=== PATIENT | male | born 1945 | race Caucasian/White ===

== ENCOUNTER 2016-08-14 20:40 | Emergency (ER) | payer OTHER ==
[~2016-08-14] VITALS: Ht 170.2 cm; Wt 78.3 kg
[2016-08-14 20:47] VITALS: TEMP 36.5; Ht 170.2 cm; Wt 78.3 kg
[2016-08-14] MEDS ORDERED: DOXYCYCLINE HYCLATE 100 MG CAP PO STA (21:09)
[2016-08-14] MEDS ORDERED: MULT-506 PO (21:16)
[2016-08-14] MEDS ORDERED: METF-382 PO (21:16)
[2016-08-14] MEDS ORDERED: GLIP5TAB3 PO (21:16)
[2016-08-14] MEDS ORDERED: ASPI81TA28 PO (21:16)
[2016-08-14] MEDS ORDERED: CINN500T PO (21:16)
[2016-08-14] MEDS ORDERED: METO25TA56 PO (21:16)
[2016-08-14] MEDS ORDERED: ATOR-24 PO (21:16)
[2016-08-14] MEDS ORDERED: LISI-461 PO (21:16)
[2016-08-14 21:25] VITALS: BP 132/85; PULSE 82; O2SAT 98
--- NOTE | 2016-08-14 22:27 | EMERGENCY ROOM VISIT NOTE ---
ED Visit Note First contact with patient: 20:50 CHIEF COMPLAINT: Tick bite HISTORY OF PRESENT ILLNESS: This 71-year-old male patient presents to the emergency department after they noticed a tick embedded on the right arm. The patient did remove it, but has developed a small area of warmth in this area. It had been on for less than 24 hours. The patient's tetanus shot is reportedly up-to-date. The patient denies any rashes, fevers, chills, or lightheadedness. The patient denies joint tenderness. REVIEW OF SYSTEMS: A 6 system review of systems was completed with positives and pertinent negatives listed in the HPI. ALLERGIES: No known allergies MEDICATIONS: See EMR PMH: See EMR SOCIAL HISTORY: See EMR PHYSICAL EXAM: Vital Signs: Reviewed Nurse's notes, vital signs stable. GENERAL : White male, in no acute distress, well-developed, well-nourished. SKIN: There is an area of erythema over the anterior cubital fossa of the right arm. There is no significant cellulitis or evidence of rash NEUROLOGICAL: Alert and oriented to person place and time, cooperative. Sensory and motor functions grossly intact. ED COURSE: Physical exam and history were performed. Nursing notes and EMR were reviewed. The patient evidently had a tick bite earlier today. He was able to remove it in full, but does have some residual irritation to the area. I do not suspect a gross cellulitis or obvious Lyme disease. The patient will be given a post exposure dose of 200 mg doxycycline. He is asked to follow with his primary care physician with any ongoing or persisting symptoms. He was pleased with plan of care and discharged home in stable condition. Current/Historical Medications Scheduled Aspirin (Aspirin Ec), 81 MG PO DAILY Atorvastatin (Lipitor), 40 MG PO HS Glipizide (Glucotrol), 5-10 MG PO UD Metformin Ext Rel (Glucophage Ext Rel), 1,000 MG PO BID Metoprolol Tartrate (Lopressor) (Lopressor), 25 MG PO BID Multivitamin (Multivitamin), 1 TAB PO DAILY Scheduled PRN Cinnamon (Cinnamon), 500 MG PO DAILY PRN for supplement Miscellaneous Medications Lisinopril (Zestril), 10 MG PO Allergies Coded Allergies: NO KNOWN DRUG ALLERGIES (Verified Allergy, Unknown, none, 08/14/16) Uncoded Allergies: NKDA (Allergy, Unknown, 07/27/05) Vital Signs Date Time Temp Pulse Resp B/P Pulse Ox O2 Delivery O2 Flow Rate FiO2 08/14/16 21:25 82 18 132/85 98 08/14/16 20:47 36.5 79 18 176/76 95 Room Air Medications Administered Medications (Trade) Dose Ordered Sig/Berry Route Start Time Stop Time Status Last Admin Dose Admin Doxycycline Hyclate (Vibramycin Cap) 200 mg NOW STAT PO 08/14/16 21:09 08/14/16 21:10 DC 08/14/16 21:21 200 MG Departure Information Impression Primary Impression: Tick bite Dispostion Home / Self-Care Condition FAIR Referrals Malik King D.O.Int.Med. Malik King D.O. Pulmonary (PCP) Forms HOME CARE DOCUMENTATION FORM, IMPORTANT VISIT INFORMATION Patient Instructions My [facility] Additional Instructions You were seen and evaluated today on an emergency basis only. This is not a substitute for, or an effort to provide, complete comprehensive medical care. It is not possible to recognize and treat all injuries or illnesses in a single emergency department visit. For this reason it is recommended that you followup with your primary care physician next week for any ongoing or persistent symptoms. You are welcome to return to the emergency department anytime with new, worsening, or concerning symptoms.
== END 2016-08-14 21:23 | disposition home or self-care (01) ==
LOC: C.EDB 20:41 → C.EDD 21:23
DX: S41.151A Open bite of right upper arm, initial encounter (principal); W57.XXXA Bitten or stung by nonvenomous insect and other nonvenomous arthropods, initial encounter; Z79.82 Long term (current) use of aspirin

== ENCOUNTER → 2016-11-11 | Outpatient (CLI) | payer OTHER ==
[~2016-11-11] MED LIST: ASPI81TA28 PO; ATOR-24 PO; CINN500T PO; GLIP5TAB3 PO; LISI-461 PO; METF-382 PO; METO25TA56 PO; MULT-506 PO
[2016-11-11 12:50] LABS: ESTIMATED AVERAGE GLUCOSE 137 mg/dl; HA1C FLAG Normal (Normal)
== END | disposition home or self-care (01) ==
LOC: C.LABBFT 08:40
PROVIDERS: ATTEND Nurse Practitioner Family
DX: Z00.00 Encounter for general adult medical examination without abnormal findings (principal); E11.9 Type 2 diabetes mellitus without complications

== ENCOUNTER → 2016-11-24 | Outpatient (CLI) | payer OTHER ==
[2016-11-24 12:58] LABS: ALT/SGPT 24 U/L (12-78); BLOOD UREA NITROGEN 14 mg/dl (7-18); BUN/CREATININE RATIO 18.3 (10-20); CARBON DIOXIDE 30 mmol/L (21-32); CHLORIDE 105 mmol/L (98-107); CHOLESTEROL 130 mg/dl (0-200); CREATININE 0.78 mg/dl (0.60-1.40); GLUCOSE 115 mg/dl (70-99); POTASSIUM 4.3 mmol/L (3.5-5.1); SODIUM 142 mmol/L (136-145); TRIGLYCERIDES 114 mg/dl (0-150); VERY LOW DENSITY LIPOPROT CALC 23 mg/dl
[2016-11-24 13:02] LABS: CALCIUM 9.4 mg/dl (8.5-10.1)
[2016-11-24 13:08] LABS: ALB/GLOB RATIO 1.1 (0.9-2); ALKALINE PHOSPHATASE 58 U/L (45-117); AST/SGOT 13 U/L (15-37); CHOLESTEROL/HDL RATIO 2.9; HDL CHOLESTEROL 45 mg/dl; LDL CHOLESTEROL CALCULATED 62 mg/dl
[2016-11-24 13:26] LABS: RATIO 7.1 mcg/mg (0-30.0)
== END | disposition home or self-care (01) ==
LOC: C.LAB1850 10:02
PROVIDERS: ATTEND Nurse Practitioner Family
DX: E11.9 Type 2 diabetes mellitus without complications (principal); M17.11 Unilateral primary osteoarthritis, right knee

== ENCOUNTER → 2016-11-24 | Outpatient (CLI) | payer OTHER ==
--- NOTE | 2016-11-24 11:50 | DIAGNOSTIC IMAGING REPORT ---
RIGHT KNEE 1 OR 2 VIEWS ROUTINE CLINICAL HISTORY: Right knee pain. COMPARISON: None. DISCUSSION: There are advanced osteoarthritic changes present. There are dorsal patellar spurs. There is marked medial joint compartment narrowing. There are medial joint compartment spurs. There is chondrocalcinosis. There are anterior femoral spurs. IMPRESSION: 1. No acute fractures 2. Advanced osteoarthritis Electronically signed by: Thaddeus Blackman M.D. 11/24/2016 11:49 AM Dictated Date/Time: 11/24/2016 11:48 AM
== END | disposition home or self-care (01) ==
LOC: C.RADBC 11:30
PROVIDERS: ATTEND Family Medicine
DX: M17.11 Unilateral primary osteoarthritis, right knee (principal)

== ENCOUNTER 2023-11-02 20:03 | Inpatient (IN) ==
[2023-11-02 20:50] LABS: Basophils # (auto) 0.05 K/uL (0.00-0.20); Basophils % (auto) 0.8 %; Eosinophils # (auto) 0.09 K/uL (0.00-0.50); Eosinophils % (auto) 1.4 %; Hematocrit (blood only) 41.5 % (42.0-52.0); Hemoglobin 14.2 g/dl (14.0-18.0); Immature Granulocytes # (auto) 0.03 K/uL (0.01-0.20); Immature Granulocytes % (auto) 0.5 %; Lymphocytes # (auto) 1.42 K/uL (1.20-3.40); Lymphocytes % (auto) 21.8 %; Mean Corpuscular Hemoglobin 31.1 pg (25.0-34.0); Mean Corpuscular Hgb Conc 34.2 g/dL (32.0-36.0); Mean Corpuscular Volume 90.8 fL (80.0-100.0); Mean Platelet Volume 10.8 fL (9.4-12.4); Monocytes # (auto) 0.59 K/uL (0.11-0.59); Monocytes % (auto) 9.1 %; Neutrophils # (auto) 4.33 K/uL (1.40-6.50); Neutrophils % (auto) 66.4 %; Platelet Count 154 K/uL (130-400); RDW Coefficient of Variation 13.2 % (11.5-14.5); RDW Standard Deviation 43.8 fL (36.4-46.3); Red Blood Count 4.57 M/uL (4.70-6.10); White Blood Count 6.51 K/ul (4.8-10.8)
[2023-11-02] MEDS: SODIUM CHLORIDE 0.9% 500 ML IV ONE (20:55)
[2023-11-02 21:09] LABS: Albumin Globulin Ratio 1.2 (0.9-2); Albumin Level 3.6 gm/dl (3.4-5.0); BUN Creatinine Ratio 25.2 (10-20); Bilirubin,Total 1.3 mg/dl (0.2-1.0); Est GFR (African American) 63.9 ml/min; Est GFR (Non-African American) 55.1 ml/min; Globulin 2.9 gm/dl (2.5-4.0); Magnesium 1.6 mg/dl (1.7-2.4); Potassium 4.1 mmol/L (3.5-5.1); Total Protein 6.5 gm/dl (6.0-8.3)
[2023-11-02 21:13] LABS: iSTAT Creatinine 1.3 mg/dl (0.6-1.3); iSTAT Hemoglobin 14.6 g/dl (14.0-18.0); iSTAT Ionized Calcium 1.18 mmol/l (1.12-1.32); iSTAT Potassium 4.1 mmol/L (3.3-5.0)
[2023-11-02 21:15] LABS: Troponin I High Sensitivity 30.9 pg/ml (0-20)
[2023-11-02] MEDS: OPTIRAY 320 125ml IV ONE (21:16)
[2023-11-02 21:22] LABS: Partial Thromboplastin Ratio 0.9; Partial Thromboplastin Time 23 Seconds (21-31); Prothrombin Time 11.2 Seconds (9.0-12.0)
--- NOTE | 2023-11-02 21:32 | CT Scan Report ---
Exam(s): CT HEAD Without Contrast EXAM: CT Head Without Intravenous Contrast CLINICAL HISTORY: Reason for exam: neuro deficit, acute stroke suspected. TECHNIQUE: Axial computed tomography images of the head/brain without intravenous contrast. CTDI is 38.31 mGy and DLP is 1115.88 mGy-cm. Automated exposure control was utilized for the study. A dose lowering technique was utilized adhering to the principles of ALARA. COMPARISON: None FINDINGS: Brain: No acute infarct or hemorrhage identified. No extra-axial fluid collection. No mass effect or midline shift. Scattered areas of hypoattenuation in the supratentorial white matter likely represent chronic small vessel ischemic changes. Ventricles and sulci: Prominence of the ventricles and sulci is likely secondary to cerebral volume loss. Bones: Normal. No bony lesion or acute fracture. Subcutaneous tissues: Normal. Sinuses: Normal. No air-fluid levels or mucosal thickening. Mastoid air cells: Normal. Orbits: Bilateral lens implants. Other: Atherosclerotic calcifications in the intracranial vasculature. IMPRESSION: 1. No acute intracranial abnormality. 2. Mild chronic small vessel ischemic changes and cerebral volume loss. Communications: Call Doctor Stroke Electronically signed by: Rosalba Haynes M.D. 11/02/23 21:31 PM
[2023-11-02 21:34] LABS: Appearance Urine Clear (Clear); Bilirubin Urine 1+ (Negative); Blood Urine Negative (Negative); Color Urine Dark Yellow; Glucose Urine UA 3+ (Negative); Ketones Urine Trace (Negative); Leukocyte Esterase Urine Negative (Negative); Nitrite Urine Negative (Negative); Protein Urine Negative (Negative); Specific Gravity Urine 1.037 (1.000-1.030); Urobilinogen Urine Negative (Negative); pH Urine 5.5 (4.5-7.5)
--- NOTE | 2023-11-02 21:39 | CT Scan Report ---
Exam(s): CTA NECK With Contrast IV Amt: 119ml EXAM: CT Angiography Neck With Intravenous Contrast CLINICAL HISTORY: Reason for exam: neuro deficit, acute stroke suspected. TECHNIQUE: Routine carotid CT angiography protocol was performed with intravenous contrast. NASCET criteria using the distal ICAs for comparison were used for evaluation of stenoses. CTDI is 38.31 mGy and DLP is 1115.88 mGy-cm. Automated exposure control was utilized for the study. A dose lowering technique was utilized adhering to the principles of ALARA. MIP reconstructed images were created and reviewed. CONTRAST: Patient received 119ml of IV contrast COMPARISON: None FINDINGS: VASCULATURE: Right common carotid artery: Atherosclerotic changes of the right common carotid artery, causing approximately 30-50% stenosis. No dissection. Right internal carotid artery: Atherosclerotic changes in the right carotid bulb and proximal right ICA, causing approximately 80% stenosis and the right carotid bulb and 30-50% stenosis of the proximal right ICA. No dissection. Right external carotid artery: Approximately 50-70% stenosis of the proximal right ECA. Right vertebral artery: Unremarkable. No occlusion or significant stenosis. No dissection. Left common carotid artery: Atherosclerotic changes of the left common carotid artery, causing approximately 30-50% stenosis. No dissection. Left internal carotid artery: Atherosclerotic changes in the left carotid bulb and proximal left ICA, causing approximately 50% stenosis of the left carotid bulb. No dissection. Left external carotid artery: Approximately 80-90% stenosis in the proximal left ECA. Left vertebral artery: Dominant left vertebral artery. No occlusion or significant stenosis. No dissection. Aorta: Atherosclerotic changes of the aorta and origins of the great vessels. NECK: Bones/joints: Degenerative changes of the spine. No acute fracture. Soft tissues: Unremarkable. Lung apices: Clear. CAROTID STENOSIS REFERENCE USING NASCET CRITERIA: % ICA stenosis = (1 - narrowest ICA diameter/diameter of distal cervical ICA) x 100. Mild - <50% stenosis. Moderate - 50-69% stenosis. Severe - 70-94% stenosis. Near occlusion - 95-99% stenosis. Occluded - 100% stenosis. IMPRESSION: 1. Atherosclerotic changes of the right common carotid artery, causing approximately 30-50% stenosis. 2. Atherosclerotic changes in the right carotid bulb and proximal right ICA, causing approximately 80% stenosis and the right carotid bulb and 30- 50% stenosis of the proximal right ICA. 3. Atherosclerotic changes in the left carotid bulb and proximal left ICA, causing approximately 50% stenosis of the left carotid bulb. 4. Approximately 50-70% stenosis of the proximal right ECA. 5. Approximately 80-90% stenosis in the proximal left ECA. Communications: Call Doctor Stroke Electronically signed by: Rosalba Haynes M.D. 11/02/23 21:38 PM
--- NOTE | 2023-11-02 21:41 | CT Scan Report ---
Exam(s): CTA HEAD With Contrast IV Amt: 119ml EXAM: CT Angiography Head With Intravenous Contrast CLINICAL HISTORY: Reason for exam: neuro deficit, acute stroke suspected. TECHNIQUE: Axial computed tomographic angiography images of the head with intravenous contrast. CTDI is 38.31 mGy and DLP is 1115.88 mGy-cm. Automated exposure control was utilized for the study. A dose lowering technique was utilized adhering to the principles of ALARA. MIP reconstructed images were created and reviewed. CONTRAST: Patient received 119ml of IV contrast COMPARISON: None FINDINGS: Right internal carotid artery: Possible 3 mm aneurysm off of the junction of the supraclinoid right ICA and MCA. Atherosclerotic calcifications of the distal right ICA. No significant stenosis. Right anterior cerebral artery: Unremarkable. No occlusion or significant stenosis. No aneurysm. Right middle cerebral artery: See above. Right posterior cerebral artery: Unremarkable. No occlusion or significant stenosis. No aneurysm. Right vertebral artery: Mild atherosclerotic calcification of the V4 segment of the right vertebral artery. Left internal carotid artery: Atherosclerotic calcifications of the distal left ICA. No significant stenosis. No aneurysm. Left anterior cerebral artery: Unremarkable. No occlusion or significant stenosis. No aneurysm. Left middle cerebral artery: Unremarkable. No occlusion or significant stenosis. No aneurysm. Left posterior cerebral artery: Unremarkable. No occlusion or significant stenosis. No aneurysm. Left vertebral artery: Unremarkable as visualized. Basilar artery: Unremarkable. No occlusion or significant stenosis. No aneurysm. 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 No significant stenosis or occlusion in the central or large intracranial arteries. Communications: Call Doctor Stroke Electronically signed by: Rosalba Haynes M.D. 11/02/23 21:41 PM
--- NOTE | 2023-11-02 21:48 | Emergency Department Note ---
History of Present Illness General Chief complaint: TIA Symptoms Stated complaint: HEART SURG, CONFUSION, NAUSEA Time Seen by Provider: 11/02/23 20:28 History of Present Illness Provider complaint: Difficulty speaking 78-year-old male presents emergency department with family for difficulty speaking. According to the son and other family members at bedside at 1930 the patient had an episode of expressive aphasia and slurred speech. They stated that his symptoms resolved after 5 minutes. Patient denies any falls or traumas. No headaches. Reports having heartburn but no chest pain. No difficulty breathing. Patient recently had a TAVR procedure done at [facility] on October 26, 2023. Patient is not sure if he is on any blood thinners. Home Medications Medication Instructions Recorded Confirmed Type multivitamin 1 tab PO QAM 08/27/19 09/08/23 History OneTouch Delica Lancets 33 gauge #300 ea 03/19/20 09/08/23 Rx (lancets) aspirin 81 mg tablet,delayed 81 mg PO HS 05/30/20 09/08/23 History release ascorbic acid (vitamin C) 500 mg 1,000 mg PO DAILY 07/03/21 09/08/23 History tablet cinnamon bark 500 mg capsule 2,000 mg PO BID 07/03/21 09/08/23 History (Cinnamon) OneTouch Verio test strips (blood #300 ea 09/17/21 09/08/23 Rx sugar diagnostic) Saccharomyces boulardii 250 mg 250 mg PO DAILY 03/16/22 09/08/23 History capsule (Daily Probiotic (S. boulardii)) diclofenac sodium 75 mg 75 mg PO BID PRN Pain #30 tabs 04/16/22 09/08/23 Rx tablet,delayed release OneTouch Verio Flex Start #1 ea 09/06/22 09/08/23 Rx (blood-glucose meter) metformin 500 mg tablet,extended 1,000 mg (2 x 500 mg) PO BID #360 10/06/22 09/08/23 Rx release 24 hr tabs atorvastatin 80 mg tablet 80 mg PO DAILY #90 tabs 01/04/23 09/08/23 Rx metoprolol tartrate 25 mg tablet 25 mg PO BID #180 tabs 01/04/23 09/08/23 Rx clopidogrel 75 mg tablet (Plavix) 75 mg PO DAILY #90 tabs 03/21/23 09/08/23 Rx losartan 100 mg tablet 100 mg PO DAILY #90 tabs 03/21/23 09/08/23 Rx tamsulosin 0.4 mg capsule 0.4 mg PO BID #180 caps 04/05/23 09/08/23 Rx empagliflozin 25 mg tablet 25 mg PO DAILY #90 tabs 06/21/23 09/08/23 Rx (Jardiance) isosorbide mononitrate 60 mg 60 mg PO QAM #90 tabs 09/08/23 09/08/23 Rx tablet,extended release 24 hr Allergies Allergy/AdvReac Type Severity Reaction Status Date / Time No Known Drug Allergies Allergy Unknown none Verified 09/08/23 10:50 Past Med/Surg History Problem List (Updated 11/02/23 @ 22:02 by Marcos Conner MD) Brain TIA (Acute) ROBIN (dyspnea on exertion) Stable angina pectoris Lower urinary tract symptoms Exertional chest pain LVH (left ventricular hypertrophy) (Chronic) Aortic stenosis (Chronic) Hearing deficit (Chronic) CAD (coronary artery disease) (Chronic) s/p ANTIONE x 2 10yrs ago, and ANTIONE x 2 12/2018 BPH (benign prostatic hyperplasia) (Chronic) Dyslipidemia (Chronic) Hypertension (Chronic) Type 2 diabetes mellitus (Chronic) Surgical History History of heart artery stent total 3 (last placed 2018) @ [place] History of bilateral cataract extraction History of carpal tunnel release BILAT History of colonoscopy History of tooth extraction History of arthroscopy rt knee Family History Sister Diabetes Brother Myocardial infarction Sister Heart disease Other No family history of adverse response to anesthesia Denies family history of Ovarian cancer Prostate cancer Breast cancer Lung cancer Colorectal cancer Social History Smoking Status: Never smoker Second Hand Exposure: Yes (as a child); Do You Dip or Chew Tobacco: No; Hx Alcohol Use: No Hx Substance Use: No Preferred Language: Bangladeshi Communication Ability: Effective Visual Impairment: No Limitations Hearing Ability: Hard of Hearing Manager Purchasing Required: No Beliefs That Will Affect Care: None marital status: Current Living Situation: Alone current occupational status: retired 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, 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 Feels Safe at Home: Yes Childhood Exposure to Second-Hand Smoke: Yes Diet: regular caffeine: Yes Dental Care, Regularly: No Physical Activity Frequency: Daily Seatbelt Use: never Sunscreen Use: No Assistive Devices: Denture - Upper, Denture - Lower and Glasses Physical Exam Vital Signs Vital Signs - 24 hr 11/02/23 20:08 11/02/23 20:27 11/02/23 20:30 Temperature 36.4 C L Temperature Source Temporal Artery Scan Pulse Rate 73 67 67 Respiratory Rate 18 17 Respiratory Effort / Characteristics Non-Labored Spontaneous Respiratory Depth Normal Respiratory Pattern Regular Blood Pressure 91/55 L 90/58 L Blood Pressure Mean 67 64 Blood Pressure Position Sitting Pulse Oximetry 95 96 Oxygen Delivery Method Room Air Room Air Sepsis Recent Fever Within 48 Hours No Sepsis New/Unexplained Change in Mental Status N/A Sepsis Action Taken by Nursing No Action Required 11/02/23 20:40 11/02/23 21:23 11/02/23 21:30 Temperature Temperature Source Pulse Rate 65 62 63 Respiratory Rate 16 13 21 Respiratory Effort / Characteristics Respiratory Depth Respiratory Pattern Blood Pressure 100/64 102/56 L 111/60 Blood Pressure Mean 70 75 84 Blood Pressure Position Pulse Oximetry 93 93 96 Oxygen Delivery Method Room Air Room Air Room Air Sepsis Recent Fever Within 48 Hours Sepsis New/Unexplained Change in Mental Status Sepsis Action Taken by Nursing Physical Exam HENT: Exam performed. - Head: Normocephalic and atraumatic. - Right Ear: External ear normal. No mastoid erythema - Left Ear: External ear normal. No mastoid erythema - Mouth/Throat: The oropharynx is clear and moist. No trismus in the jaw. No dental abscesses or uvula swelling. No oropharyngeal exudate or tonsillar abscesses. EYES: Conjunctivae and EOM are normal. Pupils are equal, round, and reactive to light. Right eye exhibits no discharge. Left eye exhibits no discharge. No scleral icterus. NECK: Normal range of motion. Neck supple. No JVD present. No rigidity. No tracheal deviation and normal range of motion present. CV: Normal rate, regular rhythm, normal heart sounds and intact distal pulses. There is no peripheral edema. Palpable radial pulses bue. PULM/CHEST: Effort normal and breath sounds normal. No respiratory distress. No stridor. He has no wheezes. He has no rales. ABD: The abdomen is soft. There is no tenderness. There is no rebound, no guarding MUSC/SKEL: Normal range of motion. There is no peripheral edema, tenderness or deformity. NEURO: He is alert and oriented to person, place, and time. He has normal strength. No cranial nerve deficit or sensory deficit. Coordination and gait normal. GCS eye subscore is 4. GCS verbal subscore is 5. GCS motor subscore is 6. Cerebellar tests wnl. Mild dysarthria but the patient's family member states this is how he usually sounds. NIHSS 0 Course Course 2027: The patient was evaluated in room C7. A complete history and physical exam was performed Cardiac monitoring: An order was placed for continuous cardiac monitoring. The monitor shows a rate of 70 with sinus rhythm interpreted by in 2144: Vital signs stable status post 500 cc bolus.. Labs show mildly elevated high-sensitivity troponin at 30.9. Patient does not report any chest pain or difficulty breathing and the patient recently had a TAVR. Imaging shows no ICH or LVO. It is thought the patient suffered a TIA and will be admitted to the hospital service for further TIA workup. Dr. Fagan's team notified. Administered Medications Discontinued Medications Sodium Chloride (Nss) 500 mls @ 999 mls/hr IV .Q31M ONE Stop: 11/02/23 21:05 Last Infusion: 11/02/23 21:26 Dose: Infused Documented By: Admin: 11/02/23 20:55 Dose: 999 mls/hr Documented By: GLORIA Ioversol (Optiray 320 125ml) 119 ml IV ONCE ONE Stop: 11/02/23 21:16 Last Admin: 11/02/23 21:16 Dose: 119 ml Documented By: BELKIS Medical Decision Making Laboratory Data Attestation: I reviewed the patient's lab results. 11/02/23 20:26 11/02/23 20:26 Lab Results 11/02/23 11/02/23 11/02/23 Range/Units 20:26 20:29 20:53 WBC 6.51 (4.8-10.8) K/ul RBC 4.57 L (4.70-6.10) M/uL Hgb 14.2 (14.0-18.0) g/dl POC Hgb (14.0-18.0) g/dl Hct 41.5 L (42.0-52.0) % POC Hct (42-52) % MCV 90.8 (80.0-100.0) fL MCH 31.1 (25.0-34.0) pg MCHC 34.2 (32.0-36.0) g/dL RDW Std Deviation 43.8 (36.4-46.3) fL RDW Coeff of Leonel 13.2 (11.5-14.5) % Plt Count 154 (130-400) K/uL MPV 10.8 (9.4-12.4) fL Immature Gran % (Auto) 0.5 % Neut % (Auto) 66.4 % Lymph % (Auto) 21.8 % Smyth % (Auto) 9.1 % Eos % (Auto) 1.4 % Baso % (Auto) 0.8 % Neut # (Auto) 4.33 (1.40-6.50) K/uL Lymph # (Auto) 1.42 (1.20-3.40) K/uL Smyth # (Auto) 0.59 (0.11-0.59) K/uL Eos # (Auto) 0.09 (0.00-0.50) K/uL Baso # (Auto) 0.05 (0.00-0.20) K/uL Immature Gran # (Auto) 0.03 (0.01-0.20) K/uL PT 11.2 (9.0-12.0) Seconds INR 1.0 (0.9-1.1) APTT 23 (21-31) Seconds PTT Ratio 0.9 POC Sodium (135-144) mmol/L Sodium 134 L (136-145) mmol/L POC Potassium (3.3-5.0) mmol/L Potassium 4.1 (3.5-5.1) mmol/L POC Chloride (101-112) mmol/L Chloride 103 (98-107) mmol/L Carbon Dioxide 21 (21-32) mmol/L POC Total CO2 (24-31) mmol/L Anion Gap 10 (3-11) POC Anion Gap (16-25) mmol/L POC BUN (7-18) mg/dl BUN 31 H (6-23) mg/dl Creatinine 1.23 (0.6-1.4) mg/dl POC Creatinine (0.6-1.3) mg/dl Est Cr Clr Drug Dosing 44.0 ml/min Est GFR ( Amer) 63.9 ml/min Est GFR (Non-Af Amer) 55.1 ml/min BUN/Creatinine Ratio 25.2 H (10-20) Glucose 220 H (70-99(Fasting)) mg/dl POC Glucose 208 H (70-99) mg/dl POC Glucose (other) (70-99) mg/dl Lactate 1.2 (0.4-2.0) mmol/L Calcium 9.0 (8.6-10.3) mg/dl POC Ioniz Calcium Adelaida (1.12-1.32) mmol/l Magnesium 1.6 L (1.7-2.4) mg/dl Total Bilirubin 1.3 H (0.2-1.0) mg/dl AST 18 (13-39) U/L ALT 20 (7-52) U/L Alkaline Phosphatase 78 (34-104) U/L Troponin I High Sens 30.9 H (0-20) pg/ml Total Protein 6.5 (6.0-8.3) gm/dl Albumin 3.6 (3.4-5.0) gm/dl Globulin 2.9 (2.5-4.0) gm/dl Albumin/Globulin Ratio 1.2 (0.9-2) Urine Color Dark Yellow Urine Appearance Clear (Clear) Urine pH 5.5 (4.5-7.5) Ur Specific [place] 1.037 H (1.000-1.030) Urine Protein Negative (Negative) Urine Glucose (UA) 3+ H (Negative) Urine Ketones Trace H (Negative) Urine Blood Negative (Negative) Urine Nitrite Negative (Negative) Urine Bilirubin 1+ H (Negative) Urine Urobilinogen Negative (Negative) Ur Leukocyte Esterase Negative (Negative) 11/02/23 Range/Units 21:00 WBC (4.8-10.8) K/ul RBC (4.70-6.10) M/uL Hgb (14.0-18.0) g/dl POC Hgb 14.6 (14.0-18.0) g/dl Hct (42.0-52.0) % POC Hct 43 (42-52) % MCV (80.0-100.0) fL MCH (25.0-34.0) pg MCHC (32.0-36.0) g/dL RDW Std Deviation (36.4-46.3) fL RDW Coeff of Leonel (11.5-14.5) % Plt Count (130-400) K/uL MPV (9.4-12.4) fL Immature Gran % (Auto) % Neut % (Auto) % Lymph % (Auto) % Smyth % (Auto) % Eos % (Auto) % Baso % (Auto) % Neut # (Auto) (1.40-6.50) K/uL Lymph # (Auto) (1.20-3.40) K/uL Smyth # (Auto) (0.11-0.59) K/uL Eos # (Auto) (0.00-0.50) K/uL Baso # (Auto) (0.00-0.20) K/uL Immature Gran # (Auto) (0.01-0.20) K/uL PT (9.0-12.0) Seconds INR (0.9-1.1) APTT (21-31) Seconds PTT Ratio POC Sodium 136 (135-144) mmol/L Sodium (136-145) mmol/L POC Potassium 4.1 (3.3-5.0) mmol/L Potassium (3.5-5.1) mmol/L POC Chloride 102 (101-112) mmol/L Chloride (98-107) mmol/L Carbon Dioxide (21-32) mmol/L POC Total CO2 23 L (24-31) mmol/L Anion Gap (3-11) POC Anion Gap 16.0 (16-25) mmol/L POC BUN 29 H (7-18) mg/dl BUN (6-23) mg/dl Creatinine (0.6-1.4) mg/dl POC Creatinine 1.3 (0.6-1.3) mg/dl Est Cr Clr Drug Dosing ml/min Est GFR ( Amer) ml/min Est GFR (Non-Af Amer) ml/min BUN/Creatinine Ratio (10-20) Glucose (70-99(Fasting)) mg/dl POC Glucose (70-99) mg/dl POC Glucose (other) 215 H (70-99) mg/dl Lactate (0.4-2.0) mmol/L Calcium (8.6-10.3) mg/dl POC Ioniz Calcium Adelaida 1.18 (1.12-1.32) mmol/l Magnesium (1.7-2.4) mg/dl Total Bilirubin (0.2-1.0) mg/dl AST (13-39) U/L ALT (7-52) U/L Alkaline Phosphatase (34-104) U/L Troponin I High Sens (0-20) pg/ml Total Protein (6.0-8.3) gm/dl Albumin (3.4-5.0) gm/dl Globulin (2.5-4.0) gm/dl Albumin/Globulin Ratio (0.9-2) Urine Color Urine Appearance (Clear) Urine pH (4.5-7.5) Ur Specific [place] (1.000-1.030) Urine Protein (Negative) Urine Glucose (UA) (Negative) Urine Ketones (Negative) Urine Blood (Negative) Urine Nitrite (Negative) Urine Bilirubin (Negative) Urine Urobilinogen (Negative) Ur Leukocyte Esterase (Negative) Imaging Data Attestation: I personally reviewed and interpreted this imaging study as follows: My Impression: Airway clear. No pneumothorax. No consolidation. mild cardiomegaly nocephalization.. No free air under the diaphragm. No fractures of the skeletal structures. Radiologist's Impression: Head CT 11/02/23 20:35 CR Exam(s): CT HEAD Without Contrast EXAM: CT Head Without Intravenous Contrast CLINICAL HISTORY: Reason for exam: neuro deficit, acute stroke suspected. TECHNIQUE: Axial computed tomography images of the head/brain without intravenous contrast. CTDI is 38.31 mGy and DLP is 1115.88 mGy-cm. Automated exposure control was utilized for the study. A dose lowering technique was utilized adhering to the principles of ALARA. COMPARISON: None FINDINGS: Brain: No acute infarct or hemorrhage identified. No extra-axial fluid collection. No mass effect or midline shift. Scattered areas of hypoattenuation in the supratentorial white matter likely represent chronic small vessel ischemic changes. Ventricles and sulci: Prominence of the ventricles and sulci is likely secondary to cerebral volume loss. Bones: Normal. No bony lesion or acute fracture. Subcutaneous tissues: Normal. Sinuses: Normal. No air-fluid levels or mucosal thickening. Mastoid air cells: Normal. Orbits: Bilateral lens implants. Other: Atherosclerotic calcifications in the intracranial vasculature. IMPRESSION: 1. No acute intracranial abnormality. 2. Mild chronic small vessel ischemic changes and cerebral volume loss. Communications: Call Doctor Stroke Electronically signed by: Rosalba Haynes M.D. 11/02/23 21:31 PM Head CTA 11/02/23 20:35 CR Exam(s): CTA HEAD With Contrast IV Amt: 119ml EXAM: CT Angiography Head With Intravenous Contrast CLINICAL HISTORY: Reason for exam: neuro deficit, acute stroke suspected. TECHNIQUE: Axial computed tomographic angiography images of the head with intravenous contrast. CTDI is 38.31 mGy and DLP is 1115.88 mGy-cm. Automated exposure control was utilized for the study. A dose lowering technique was utilized adhering to the principles of ALARA. MIP reconstructed images were created and reviewed. CONTRAST: Patient received 119ml of IV contrast COMPARISON: None FINDINGS: Right internal carotid artery: Possible 3 mm aneurysm off of the junction of the supraclinoid right ICA and MCA. Atherosclerotic calcifications of the distal right ICA. No significant stenosis. Right anterior cerebral artery: Unremarkable. No occlusion or significant stenosis. No aneurysm. Right middle cerebral artery: See above. Right posterior cerebral artery: Unremarkable. No occlusion or significant stenosis. No aneurysm. Right vertebral artery: Mild atherosclerotic calcification of the V4 segment of the right vertebral artery. Left internal carotid artery: Atherosclerotic calcifications of the distal left ICA. No significant stenosis. No aneurysm. Left anterior cerebral artery: Unremarkable. No occlusion or significant stenosis. No aneurysm. Left middle cerebral artery: Unremarkable. No occlusion or significant stenosis. No aneurysm. Left posterior cerebral artery: Unremarkable. No occlusion or significant stenosis. No aneurysm. Left vertebral artery: Unremarkable as visualized. Basilar artery: Unremarkable. No occlusion or significant stenosis. No aneurysm. 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 No significant stenosis or occlusion in the central or large intracranial arteries. Communications: Call Doctor Stroke Electronically signed by: Rosalba Haynes M.D. 11/02/23 21:41 PM Neck CTA 11/02/23 20:35 CR Exam(s): CTA NECK With Contrast IV Amt: 119ml EXAM: CT Angiography Neck With Intravenous Contrast CLINICAL HISTORY: Reason for exam: neuro deficit, acute stroke suspected. TECHNIQUE: Routine carotid CT angiography protocol was performed with intravenous contrast. NASCET criteria using the distal ICAs for comparison were used for evaluation of stenoses. CTDI is 38.31 mGy and DLP is 1115.88 mGy-cm. Automated exposure control was utilized for the study. A dose lowering technique was utilized adhering to the principles of ALARA. MIP reconstructed images were created and reviewed. CONTRAST: Patient received 119ml of IV contrast COMPARISON: None FINDINGS: VASCULATURE: Right common carotid artery: Atherosclerotic changes of the right common carotid artery, causing approximately 30-50% stenosis. No dissection. Right internal carotid artery: Atherosclerotic changes in the right carotid bulb and proximal right ICA, causing approximately 80% stenosis and the right carotid bulb and 30-50% stenosis of the proximal right ICA. No dissection. Right external carotid artery: Approximately 50-70% stenosis of the proximal right ECA. Right vertebral artery: Unremarkable. No occlusion or significant stenosis. No dissection. Left common carotid artery: Atherosclerotic changes of the left common carotid artery, causing approximately 30-50% stenosis. No dissection. Left internal carotid artery: Atherosclerotic changes in the left carotid bulb and proximal left ICA, causing approximately 50% stenosis of the left carotid bulb. No dissection. Left external carotid artery: Approximately 80-90% stenosis in the proximal left ECA. Left vertebral artery: Dominant left vertebral artery. No occlusion or significant stenosis. No dissection. Aorta: Atherosclerotic changes of the aorta and origins of the great vessels. NECK: Bones/joints: Degenerative changes of the spine. No acute fracture. Soft tissues: Unremarkable. Lung apices: Clear. CAROTID STENOSIS REFERENCE USING NASCET CRITERIA: % ICA stenosis = (1 - narrowest ICA diameter/diameter of distal cervical ICA) x 100. Mild - <50% stenosis. Moderate - 50-69% stenosis. Severe - 70-94% stenosis. Near occlusion - 95-99% stenosis. Occluded - 100% stenosis. IMPRESSION: 1. Atherosclerotic changes of the right common carotid artery, causing approximately 30-50% stenosis. 2. Atherosclerotic changes in the right carotid bulb and proximal right ICA, causing approximately 80% stenosis and the right carotid bulb and 30- 50% stenosis of the proximal right ICA. 3. Atherosclerotic changes in the left carotid bulb and proximal left ICA, causing approximately 50% stenosis of the left carotid bulb. 4. Approximately 50-70% stenosis of the proximal right ECA. 5. Approximately 80-90% stenosis in the proximal left ECA. Communications: Call Doctor Stroke Electronically signed by: Rosalba Haynes M.D. 11/02/23 21:38 PM ECG Data Attestation: I personally reviewed and interpreted this ECG as follows: Additional Comments: Sinus rhythm with rate of 66. MO QRS and QTc intervals within normal limits. No ST elevation or ST depression. T wave inversion in leads I, II, III, aVF, V4, V5 V6. [facility] Narrative 2027: The patient was evaluated in room C7. A complete history and physical exam was performed Cardiac monitoring: An order was placed for continuous cardiac monitoring. The monitor shows a rate of 70 with sinus rhythm interpreted by me 2144: Vital signs stable status post 500 cc bolus.. Labs show mildly elevated high-sensitivity troponin at 30.9. Patient does not report any chest pain or difficulty breathing and the patient recently had a TAVR. Imaging shows no ICH or LVO. It is thought the patient suffered a TIA and will be admitted to the hospital service for further TIA workup. Dr. Fagan's team notified. Impression & Plan Brain TIA Discharge Plan Visit Data Chief Complaint: TIA Symptoms Stated Complaint: HEART SURG, CONFUSION, NAUSEA ED Provider: Marcos Conner Discharge Problem: Brain TIA Patient Disposition: Being Evaluated by Hospitalist Forms Stand Alone Forms: My [facility] Prescriptions Prescriptions: No Action (DME) lancets [OneTouch Delica Lancets] 33 gauge misc See Rx Instructions .ROUTE .MEDSUPPLY Qty: 300 3RF Rx Instructions: test blood sugars 3 x daily (DME) OneTouch Verio test strips Strip See Rx Instructions .ROUTE .MEDSUPPLY Qty: 300 3RF Rx Instructions: test blood sugars 3 x daily diclofenac sodium 75 mg tablet,delayed release (DR/EC) 75 mg PO BID PRN (Reason: Pain) Qty: 30 0RF (DME) blood-glucose meter [OneTouch Verio Flex Start] Kit See Rx Instructions .ROUTE .MEDSUPPLY Qty: 1 0RF Rx Instructions: Test blood sugars three times a day metformin 500 mg tablet extended release 24 hr 1,000 mg PO BID Qty: 360 3RF metoprolol tartrate 25 mg tablet 25 mg PO BID Qty: 180 3RF atorvastatin 80 mg tablet 80 mg PO DAILY Qty: 90 3RF losartan 100 mg tablet 100 mg PO DAILY Qty: 90 3RF clopidogrel [Plavix] 75 mg tablet 75 mg PO DAILY Qty: 90 3RF Patient Comments: did not get holding instructions>surgery tomorrow Jardiance 25 mg tablet 25 mg PO DAILY Qty: 90 1RF isosorbide mononitrate 60 mg tablet extended release 24 hr 60 mg PO QAM Qty: 90 3RF Saccharomyces boulardii [Daily Probiotic (S. boulardii)] 250 mg capsule 250 mg PO DAILY tamsulosin 0.4 mg capsule 0.4 mg PO BID Qty: 180 3RF cinnamon bark [Cinnamon] 500 mg capsule 2,000 mg PO BID ascorbic acid (vitamin C) 500 mg tablet 1,000 mg PO DAILY multivitamin Tablet 1 tab PO QAM aspirin 81 mg Tablet,Delayed Release (Dr/Ec) 81 mg PO HS Referrals Referrals: Penelope Molina MD [Primary Care Provider] -
--- NOTE | 2023-11-02 22:36 | History & Physical Report ---
Date of Service November 02, 2023 Assessment & Plan (1) Brain TIA: Plan: - Patient with strokelike symptoms that lasted about 5 to 10 minutes at home witnessed by family. - Head CT did not show any acute intracranial abnormalities, did show mild chronic small vessel ischemic changes and cerebral volume loss. - Head and neck CTA showed, RCA stenosis of 30-50%, proximal R ICA 80% stenosis, right ECA 50-70% stenosis, left ECA 80-90% stenosis. -Blood cultures pending -CBC benign, no signs of infection. -CMP with an increase in BUN, otherwise benign -VSS stable. -Neurology consulted as well as cardiology given history of recent TAVR. -Patient states that he has some metal in his left leg after TAVR and was told not to get an MRI. Waiting on recommendations from [facility]ology regarding MRI. Will hold off on MRI at this time. Will repeat CT in 24 hours. -Neurochecks every 4 hours. -N.p.o., will have speech therapy evaluation prior to eating. -Continue on aspirin, atorvastatin, Plavix. Will start LR at 125 ml/hr x 2 bags. -Will monitor on telemetry (2) S/P TAVR (transcatheter aortic valve replacement): Plan: - TAVR done in [facility] on 10/27/23 - Will reach out to [facility] for any recommendations. No call back at time of admission. - Given new onset GERD symptoms. Will order echo and consult cardiology. (3) CAD (coronary artery disease): Plan: - as above. (4) Dyslipidemia: Plan: - Continue on a milligrams atorvastatin. - Lipid panel in a.m. (5) Hypertension: Plan: - Will hold HTN medications. - Allow for permissive hypertension (6) Type 2 diabetes mellitus: Plan: - Patient's home regimen held on admission - Continue BSG checks, sliding-scale insulin, hypoglycemic protocol - Hemoglobin A1c in the AM. History of Present Illness Chief Complaint: TIA symptoms Primary Care Provider: Peneloep Molina MD Patient is a 78 y/o male who presents to the hospital with difficulty speaking. Patient was with family members when he started to have "broken" and "slurred" speech that started at around 1930. This episode last about 5-10 mins and then resolved. States that he had some heartburn but no chest pain. Denies any SOB, fever, cough, or lightheadedness. Patient recent had a TAVR procedure done at [facility] on 10/26/2023. Allergies Allergy/AdvReac Type Severity Reaction Status Date / Time No Known Drug Allergies Allergy Unknown none Verified 09/08/23 10:50 Home Medications Medication Instructions Recorded Confirmed Type multivitamin 1 tab PO QAM 08/27/19 11/02/23 History aspirin 81 mg tablet,delayed 81 mg PO HS 05/30/20 11/02/23 History release ascorbic acid (vitamin C) 500 mg 1,000 mg PO DAILY 07/03/21 11/02/23 History tablet OneTouch Verio test strips (blood #300 ea 09/17/21 11/02/23 Rx sugar diagnostic) Saccharomyces boulardii 250 mg 250 mg PO DAILY 03/16/22 11/02/23 History capsule (Daily Probiotic (S. boulardii)) metformin 500 mg tablet,extended 1,000 mg (2 x 500 mg) PO BID #360 10/06/22 11/02/23 Rx release 24 hr tabs atorvastatin 80 mg tablet 80 mg PO DAILY #90 tabs 01/04/23 11/02/23 Rx clopidogrel 75 mg tablet (Plavix) 75 mg PO DAILY #90 tabs 03/21/23 11/02/23 Rx losartan 100 mg tablet 100 mg PO DAILY #90 tabs 03/21/23 11/02/23 Rx empagliflozin 25 mg tablet 25 mg PO DAILY #90 tabs 06/21/23 11/02/23 Rx (Jardiance) isosorbide mononitrate 60 mg 60 mg PO QAM #90 tabs 09/08/23 11/02/23 Rx tablet,extended release 24 hr Cinnamon Tab 4,000 mg PO BID 11/02/23 11/02/23 History metoprolol succinate 50 mg 50 mg PO PM #30 tabs 11/03/23 Rx tablet,extended release 24 hr Past Med/Surg History Problem List (Updated 11/03/23 @ 09:16 by Stephon Dominguez MD) Speech disturbance S/P TAVR (transcatheter aortic valve replacement) Brain TIA (Acute) ROBIN (dyspnea on exertion) Stable angina pectoris Lower urinary tract symptoms Exertional chest pain LVH (left ventricular hypertrophy) (Chronic) Aortic stenosis (Chronic) Hearing deficit (Chronic) CAD (coronary artery disease) (Chronic) s/p ANTIONE x 2 10yrs ago, and ANTIONE x 2 12/2018 BPH (benign prostatic hyperplasia) (Chronic) Dyslipidemia (Chronic) Hypertension (Chronic) Type 2 diabetes mellitus (Chronic) Surgical History History of heart artery stent total 3 (last placed 2018) @ [place] History of bilateral cataract extraction History of carpal tunnel release BILAT History of colonoscopy History of tooth extraction History of arthroscopy rt knee Family History Sister Diabetes Brother Myocardial infarction Sister Heart disease Other No family history of adverse response to anesthesia Denies family history of Ovarian cancer Prostate cancer Breast cancer Lung cancer Colorectal cancer Social History Smoking Status: Never smoker Second Hand Exposure: Yes (as a child); Do You Dip or Chew Tobacco: No; Hx Alcohol Use: Yes Hx Substance Use: No Preferred Language: Nigerien Communication Ability: Effective Visual Impairment: No Limitations Hearing Ability: Hard of Hearing Tellers Supervisor Required: No Beliefs That Will Affect Care: None marital status: Current Living Situation: Alone Current Living Situation Comment: since current occupational status: retired 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, 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 Feels Safe at Home: Yes Childhood Exposure to Second-Hand Smoke: Yes Diet: regular caffeine: Yes Dental Care, Regularly: No Physical Activity Frequency: Daily Seatbelt Use: never Sunscreen Use: No Assistive Devices: None Review of Systems Review of Systems: All systems reviewed & are unremarkable except as noted in Subjective Physical Exam Physical Exam: Constitutional: well-appearing, no acute distress HEENT: NCAT, no conjunctival injection CV: regular rhythm, no murmur appreciated, extremities well-perfused, no LE edema Resp: CTABL, no wheezes/rales/rhonchi appreciated, no increased work of breathing GI: soft, nondistended, nontender, BS normoactive MSK: no gross deformities appreciated Skin: warm, dry, no rash appreciated Neuro: alert, oriented, no focal neurologic deficit appreciated, NIHSS 0, no dysarthria Results & Data Results & Data Vital Signs (Past 12 Hours) Vital Signs Temp Pulse Resp BP Pulse Ox O2 Del Method 11/02/23 22:00 64 19 115/75 97 Room Air 11/02/23 21:30 63 21 111/60 96 Room Air 11/02/23 21:23 62 13 102/56 L 93 Room Air 11/02/23 20:40 65 16 100/64 93 Room Air 11/02/23 20:30 67 17 90/58 L 96 Room Air 11/02/23 20:27 67 11/02/23 20:08 36.4 C L 73 18 91/55 L 95 Room Air Supervising Physician Co-Signing Physician Notes Attending addendum: I have physically seen this patient, have supervised the medical residents activities, and agree with the H&P unless as otherwise noted. Assessment and Plan: Brain TIA/strokelike symptoms- CT head negative CTA head and neck showed 30-50% RCA stenosis 80% proximal small right ICA stenosis Patient is status post TAVR 10/26/2023 at [facility]. Discussed with attending franco, and they are agreeable to continue aspirin and clopidogrel The patient will be admitted to telemetry for serial cardiac enzymes, serial EKG's, cardiac rhythm monitoring and a 2-D echocardiogram with Dopplers. Repeat CT in 24 hours, as patient is unable to get an MRI, having been warned of metal in his right leg LR at 125 MLS per hour x 2 L Permissive hypertension Consult neurology Status post TAVR/CAD/hypertension- Formed at [facility] 10/26/2023 Discussed with [facility] attending, we will continue aspirin and clopidogrel Order echo as above Consult cardiology Diabetes mellitus- Hold empagliflozin and metformin Placed on Accu-Cheks with NovoLog SSI (3) CAD (coronary artery disease) Associated angina: with unspecified form of angina Coronary Disease- Associated Artery/Lesion type: [place] artery [place] vs. transplanted heart: [place] heart Qualified Code(s): I25.119 - Atherosclerotic heart disease of [place] coronary artery with unspecified angina pectoris (5) Hypertension Hypertension type: primary hypertension Qualified Code(s): I10 - Essential (primary) hypertension
[2023-11-03] MEDS ORDERED: GLUCOSE 10 TAB/TUBE PO PRN (01:25)
[2023-11-03] MEDS ORDERED: PHARMACIST DISCHARGE MED REC CONSULT PRN (01:25)
[2023-11-03] MEDS ORDERED: DEXTROSE 50% 50 ML SYRINGE IV PRN (01:25)
[2023-11-03] MEDS ORDERED: PHARMACY GLYCEMIC MGMT CONSULT PRN (01:25)
[2023-11-03] MEDS ORDERED: GLUCAGON FOR INJ 1 MG VIAL SQ PRN (01:25)
[2023-11-03] MEDS ORDERED: GLUCOSE 40% GEL 15 GM TUBE PO PRN (01:25)
[2023-11-03] MEDS ORDERED: CARBOHYDRATES FOR HYPOGLYCEMIA PO PRN (01:25)
[2023-11-03] MEDS: LACTATED RINGER'S 1,000 ML IV SCH (02:02)
[2023-11-03] MEDS: INSULIN ASPART PER UNIT CHARGE SC SCH (02:02)
--- NOTE | 2023-11-03 07:06 | XRay Report ---
XR chest 1V portable CLINICAL HISTORY: neuro deficit, acute stroke suspected TECHNIQUE: Single frontal radiograph of the chest was obtained. Comparison: Comparison is made to chest radiograph 05/30/2020 FINDINGS: No lines and tubes are seen. Cardiomegaly is noted. The aortic arch is calcified. The lungs are clear . No evidence of pleural effusion or pneumothorax. IMPRESSION: No acute chest disease. ACT 112: Negative or not required by law. Electronically signed by: Rohan Triplett M.D. 11/03/2023 7:04 AM
[2023-11-03 07:34] LABS: Basophils # (auto) 0.06 K/uL (0.00-0.20); Eosinophils # (auto) 0.12 K/uL (0.00-0.50); Hematocrit (blood only) 40.7 % (42.0-52.0); Hemoglobin 13.7 g/dl (14.0-18.0); Immature Granulocytes # (auto) 0.03 K/uL (0.01-0.20); Immature Granulocytes % (auto) 0.5 %; Lymphocytes # (auto) 2.09 K/uL (1.20-3.40); Lymphocytes % (auto) 35.5 %; Mean Corpuscular Hemoglobin 30.9 pg (25.0-34.0); Mean Corpuscular Hgb Conc 33.7 g/dL (32.0-36.0); Mean Corpuscular Volume 91.7 fL (80.0-100.0); Mean Platelet Volume 10.8 fL (9.4-12.4); Monocytes # (auto) 0.66 K/uL (0.11-0.59); Monocytes % (auto) 11.2 %; Neutrophils # (auto) 2.92 K/uL (1.40-6.50); Neutrophils % (auto) 49.8 %; Platelet Count 141 K/uL (130-400); RDW Coefficient of Variation 13.1 % (11.5-14.5); RDW Standard Deviation 44.8 fL (36.4-46.3); Red Blood Count 4.44 M/uL (4.70-6.10); White Blood Count 5.88 K/ul (4.8-10.8)
--- NOTE | 2023-11-03 08:04 | Electrocardiogram Report ---
Test Reason : Blood Pressure : / mmHG Vent. Rate : 066 BPM Atrial Rate : 066 BPM P-R Int : 184 ms QRS Dur : 084 ms QT Int : 438 ms P-R-T Axes : 048 -31 246 degrees QTc Int : 459 ms Normal sinus rhythm Left axis deviation Minimal voltage criteria for LVH, may be normal variant Abnormal ECG Confirmed by Conor López ([id number]) on 11/03/2023 8:03:51 AM Referred By: REFERRED SELF Confirmed By:Khris López
--- NOTE | 2023-11-03 08:07 | Electrocardiogram Report ---
Test Reason : Blood Pressure : / mmHG Vent. Rate : 066 BPM Atrial Rate : 066 BPM P-R Int : 214 ms QRS Dur : 094 ms QT Int : 438 ms P-R-T Axes : 034 -29 244 degrees QTc Int : 459 ms Sinus bradycardia with 1st degree A-V block Left axis deviation ST abnormality and T-wave inversion in Inferolateral leads concerning for ischemmia When compared with ECG of 02-NOV-2023 20:17, PREVIOUS ECG IS PRESENT Confirmed by Conor López ([id number]) on 11/03/2023 8:07:03 AM Referred By: REFERRED SELF Confirmed By:Khris López
[2023-11-03 08:25] LABS: Estimated Average Glucose 197 mg/dl; Hemoglobin A1C 8.5 % (4.5-5.6)
[2023-11-03] MEDS: ATORVASTATIN 40 MG TAB PO SCH (08:36)
[2023-11-03] MEDS: CLOPIDOGREL BISULFATE 75 MG TAB PO SCH (08:36)
--- NOTE | 2023-11-03 09:16 | Neurology Consultation ---
Date of Consultation November 03, 2023 Assessment & Plan (1) Speech disturbance: History of Present Illness Attending Physician: Coleman Bazan History of Present Illness pt this morning feeling well. CT negative. CTA with ICA/ECA narrowing b/l. pt asymptomatic currently. can't get mri due to metal in his leg. chart reviewed. pt states his speech was briefly garbled and he was still able to talk and understands. pt wants to go home. admission HPI: Patient is a 78 y/o male who presents to the hospital with difficulty speaking. Patient was with family members when he started to have "broken" and "slurred" speech that started at around 1930. This episode last about 5-10 mins and then resolved. States that he had some heartburn but no chest pain. Denies any SOB, fever, cough, or lightheadedness. Patient recent had a TAVR procedure done at [place] on 10/26/2023. Allergies Allergy/AdvReac Type Severity Reaction Status Date / Time No Known Drug Allergies Allergy Unknown none Verified 09/08/23 10:50 Home Medications Medication Instructions Recorded Confirmed Type multivitamin 1 tab PO QAM 08/27/19 11/02/23 History aspirin 81 mg tablet,delayed 81 mg PO HS 05/30/20 11/02/23 History release ascorbic acid (vitamin C) 500 mg 1,000 mg PO DAILY 07/03/21 11/02/23 History tablet OneTouch Verio test strips (blood #300 ea 09/17/21 11/02/23 Rx sugar diagnostic) Saccharomyces boulardii 250 mg 250 mg PO DAILY 03/16/22 11/02/23 History capsule (Daily Probiotic (S. boulardii)) metformin 500 mg tablet,extended 1,000 mg (2 x 500 mg) PO BID #360 10/06/22 11/02/23 Rx release 24 hr tabs atorvastatin 80 mg tablet 80 mg PO DAILY #90 tabs 01/04/23 11/02/23 Rx clopidogrel 75 mg tablet (Plavix) 75 mg PO DAILY #90 tabs 03/21/23 11/02/23 Rx losartan 100 mg tablet 100 mg PO DAILY #90 tabs 03/21/23 11/02/23 Rx tamsulosin 0.4 mg capsule 0.4 mg PO BID #180 caps 04/05/23 11/02/23 Rx empagliflozin 25 mg tablet 25 mg PO DAILY #90 tabs 06/21/23 11/02/23 Rx (Jardiance) isosorbide mononitrate 60 mg 60 mg PO QAM #90 tabs 09/08/23 11/02/23 Rx tablet,extended release 24 hr Cinnamon Tab 4,000 mg PO BID 11/02/23 11/02/23 History metoprolol tartrate 50 mg tablet 50 mg PO BID 11/02/23 11/02/23 History Patient History Surgical History History of heart artery stent total 3 (last placed 2018) @ [place] History of bilateral cataract extraction History of carpal tunnel release BILAT History of colonoscopy History of tooth extraction History of arthroscopy rt knee Family History Sister Diabetes Brother Myocardial infarction Sister Heart disease Other No family history of adverse response to anesthesia Denies family history of Ovarian cancer Prostate cancer Breast cancer Lung cancer Colorectal cancer Social History Smoking Status: Never smoker Second Hand Exposure: Yes (as a child); Do You Dip or Chew Tobacco: No; Hx Alcohol Use: Yes Hx Substance Use: No Preferred Language: Yi Communication Ability: Effective Visual Impairment: No Limitations Hearing Ability: Hard of Hearing Drug Abuse Program Coordinator Required: No Beliefs That Will Affect Care: None marital status: Current Living Situation: Alone Current Living Situation Comment: since current occupational status: retired 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, 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 Motor: No abnormal movements, normal tone and bulk, 5/5 t/o bilaterally Sens: intact to touch b/l grossly Coord: intact FNT b/l DTR: 2+ sym b/l Impression: 78 yo male with brief speech disturbance in setting of hypotension. overall not very suggestive of TIA/stroke given his BP was actually low initially and lack of other symptoms. May be hypotension/bradycardia related brief symptom but nonspecific. Recommendations: I do not see clear need for mri brain or repeat CT scan at this point. pt wants to go home. recommend outpt cardiology evaluation with watermaster cardiac monitoring for arrhythmia and hypotension. no need for DAPT at this point. ASA alone is appropriate. avoid hypotension and dehydration. call again if new question. Chart reviewed I have spent more than 50% educating patient about potential diagnosis and neurological evaluation and coordinating care with patient's treatment team. Total time spent (including chart review and coordination of care): 60 min (this includes chart review). Results & Data Vital Signs (Past 12 Hours) Vital Signs Temp Pulse Pulse Resp BP BP Pulse Ox 11/03/23 07:30 36.5 C 55 L 18 121/70 94 11/03/23 02:48 36.5 C 60 18 103/67 94 11/03/23 01:25 65 11/03/23 01:25 36.5 C 64 18 136/81 97 11/03/23 00:00 65 13 96 11/03/23 00:00 123/71 11/02/23 23:31 104/72 11/02/23 23:31 67 27 H 96 11/02/23 23:30 68 13 98 11/02/23 23:01 67 17 123/68 96 11/02/23 22:30 66 22 119/74 97 11/02/23 22:00 64 19 115/75 97 11/02/23 21:30 63 21 111/60 96 11/02/23 21:23 62 13 102/56 L 93 O2 Del Method 11/03/23 07:30 Room Air 11/03/23 02:48 Room Air 11/03/23 01:25 11/03/23 01:25 Room Air 11/03/23 00:00 Room Air 11/03/23 00:00 11/02/23 23:31 11/02/23 23:31 11/02/23 23:30 05/15/24 23:01 Room Air 11/02/23 22:30 Room Air 11/02/23 22:00 Room Air 11/02/23 21:30 Room Air 11/02/23 21:23 Room Air PG Care Time/CCT Total # of Minutes Spent Total Time Spent with Patient: Total time spent is greater than 50% in coordination of care (as documented) at patient's floor/unit and/or counseling patient: Coding Level of Care Code 55849 IN/OBS CONSULT LVL 4,60M Diagnoses Speech disturbance R47.9
[2023-11-03 10:30] LABS: BUN Creatinine Ratio 27.5 (10-20); Calcium 8.8 mg/dl (8.6-10.3); Chol HDL Ratio 3.8 (0-5); Creatinine Clr Calc Pharmacy 59.5 ml/min; Est GFR (African American) 91.9 ml/min; Est GFR (Non-African American) 79.3 ml/min; Potassium 3.7 mmol/L (3.5-5.1)
[2023-11-03] MEDS ORDERED: STROKE PATIENT DISCHARGE STA (11:03)
--- NOTE | 2023-11-03 11:04 | Discharge Summary ---
Date of Service November 03, 2023 Admission HPI Per Admitting Provider Patient is a 78 y/o male who presents to the hospital with difficulty speaking. Patient was with family members when he started to have "broken" and "slurred" speech that started at around 1930. This episode last about 5-10 mins and then resolved. States that he had some heartburn but no chest pain. Denies any SOB, fever, cough, or lightheadedness. Patient recent had a TAVR procedure done at [place] on 10/26/2023. Discharge Data Allergies Allergy/AdvReac Type Severity Reaction Status Date / Time No Known Drug Allergies Allergy Unknown none Verified 09/08/23 10:50 Consultations 11/02/23 23:01 ED Decision to Admit Stat 11/03/23 01:25 Consult Cardiology Routine Consult Neurology Routine Ordered Studies 11/02/23 20:35 CT angio head w con Stat CT angio neck with con Stat CT head/brain wo con Stat 11/03/23 22:00 CT head/brain wo con Routine Hospital Course (1) Brain TIA: - Patient with strokelike symptoms that lasted about 5 to 10 minutes at home witnessed by family. - Head CT did not show any acute intracranial abnormalities, did show mild chronic small vessel ischemic changes and cerebral volume loss. - Head and neck CTA showed, RCA stenosis of 30-50%, proximal R ICA 80% stenosis, right ECA 50-70% stenosis, left ECA 80-90% stenosis. -Blood cultures pending -CBC benign, no signs of infection. -CMP with an increase in BUN, otherwise benign -VSS stable. -Neurology consulted as well as cardiology given history of recent TAVR. -Patient states that he has some metal in his left leg after TAVR and was told not to get an MRI. Waiting on recommendations from [place] cardiology regarding MRI. Will hold off on MRI at this time. Will repeat CT in 24 hours. -Neurochecks every 4 hours. -N.p.o., will have speech therapy evaluation prior to eating. -Continue on aspirin, atorvastatin, Plavix. Will start LR at 125 ml/hr x 2 bags. -Will monitor on telemetry (2) S/P TAVR (transcatheter aortic valve replacement): - TAVR done in [place] on 10/27/23 - Will reach out to [facility] for any recommendations. No call back at time of admission. - Given new onset GERD symptoms. Will order echo and consult cardiology. (3) CAD (coronary artery disease): - as above. (4) Dyslipidemia: - Continue on a milligrams atorvastatin. - Lipid panel in a.m. (5) Hypertension: - Will hold HTN medications. - Allow for permissive hypertension (6) Type 2 diabetes mellitus: - Patient's home regimen held on admission - Continue BSG checks, sliding-scale insulin, hypoglycemic protocol - Hemoglobin A1c in the AM. Discharge Plan Discharge Items Patient Disposition: Home - Self-Care Reason For Visit: STROKE-LIKE SYMPTOMS S/P TAVR Discharge Diagnosis: low blood pressure causing stroke-like symptoms Activity: Resume your previous activity Non-emergency contact: Primary Care Provider Call non-emergency contact if: you have any medication questions Follow-up/Referrals: Penelope Molina MD [Primary Care Provider] - Diet: Carb Consistent or DM2 and Heart Healthy Addtl Attending Provider Instructions: Recommend cutting back on your blood pressure medications. Will hold losartan. Will switch metoprolol tartrate to succinate and dose will now be 50mg once a day at bedtime Tamsulosin will be cut to once a day. Recommend close followup with your PCP in 1-2 weeks. I updated Som Nathan and he is aware of these changes. Pending Studies at Discharge: No Stand-Alone Forms: My [facility] [employer], Smoking Cessation Medications and DC Order Prescriptions: New metoprolol succinate 50 mg tablet extended release 24 hr 50 mg PO PM Qty: 30 0RF Continued (DME) OneTouch Verio test strips Strip See Rx Instructions .ROUTE .MEDSUPPLY Qty: 300 3RF Rx Instructions: test blood sugars 3 x daily metformin 500 mg tablet extended release 24 hr 1,000 mg PO BID Qty: 360 3RF atorvastatin 80 mg tablet 80 mg PO DAILY Qty: 90 3RF clopidogrel [Plavix] 75 mg tablet 75 mg PO DAILY Qty: 90 3RF Patient Comments: did not get holding instructions>surgery tomorrow Jardiance 25 mg tablet 25 mg PO DAILY Qty: 90 1RF isosorbide mononitrate 60 mg tablet extended release 24 hr 60 mg PO QAM Qty: 90 3RF Saccharomyces boulardii [Daily Probiotic (S. boulardii)] 250 mg capsule 250 mg PO DAILY ascorbic acid (vitamin C) 500 mg tablet 1,000 mg PO DAILY multivitamin Tablet 1 tab PO QAM aspirin 81 mg Tablet,Delayed Release (Dr/Ec) 81 mg PO HS Cinnamon Tab 4,000 mg PO BID Changed tamsulosin 0.4 mg capsule 0.4 mg PO HS Qty: 180 3RF Held losartan 100 mg tablet 100 mg PO DAILY Qty: 90 3RF Hold Instructions: Resume on 11/17/23. until seen by PCP and/or cardiology. Likely will need a lower dose. Discontinued metoprolol tartrate 50 mg tablet 50 mg PO BID Discharge Orders: Discharge Order (Routine); Ordered 11/03/23 Ordered By: Coleman Merino/Other Patient Handouts: Managing Type 2 Diabetes Admission Data Admit Date/Time: 11/02/23 23:19 Attending Provider: Coleman Bazan Admit Provider: Frederick Bermeo Primary Care Provider: Penelope Molina Other Providers: Noe Lynne; Som Nathan; Alexei Rivera; Sunday New; Jason Haney; Stanislav Quezada; Brock Christianson Jr; Jesse Ramirez; Dilia Michael; Kalee Garay; Conor [place]; Conor López; Flaco Morley; Saumya Trevino; Ketan Muro; Selma Perales; Von Mishra; Fidel Bautista; Ramses Angelo; Kristofer Mejia; Ezequiel Mora; Archie Armstrong; Luz Maria Hanson; Carley Avila; Ana Zhu; Stephon Dominguez Coding Diagnoses Brain TIA G45.9 S/P TAVR (transcatheter aortic valve replacement) Z95.2 Coronary artery disease involving [place] coronary artery of [place] heart with angina pectoris I25.119 Coronary Disease-Associated Artery/Lesion type: [place] artery [place] vs. transplanted heart: [place] heart Associated angina: with unspecified form of angina Dyslipidemia E78.5 Primary hypertension I10 Hypertension type: primary hypertension Type 2 diabetes mellitus E11.9
--- NOTE | 2023-11-03 12:11 | XCELERA ---
[id number]
[2023-11-03 16:57] LABS: A calco-baum cmplx NotReported Not Detected (NotDetected); Bact fragilis Not Reported Not Detected (NotDetected); Blood Culture Id Panel See PCR Comment (NotDetected); C auris Not Reported Not Detected (NotDetected); Calbicans Not Reported Not Detected (NotDetected); Candida glabrata Not Reported Not Detected (NotDetected); Candida krusei Not Reported Not Detected (NotDetected); Cneoformans/gatti Not Reported Not Detected (NotDetected); Cparapsilosis Not Reported Not Detected (NotDetected); E cloacae compx Not Reported Not Detected (NotDetected); Efaecalis Not Reported Not Detected (NotDetected); Efaecium Not Reported Not Detected (NotDetected); Enterobacterales Not Reported Not Detected (NotDetected); Escherichia coli Not Reported Not Detected (NotDetected); H influenzae Not Reported Not Detected (NotDetected); K aerogenes Not Reported Not Detected (NotDetected); Koxytoca Not Reported Not Detected (NotDetected); Kpneumoniae grp Not Reported Not Detected (NotDetected); Lmonocyt Not Reported Not Detected (NotDetected); N meningitidis Not Reported Not Detected (NotDetected); P aeruginosa Not Reported Not Detected (NotDetected); Proteus spp Not Reported Not Detected (NotDetected); Salmonella spp Not Reported Not Detected (NotDetected); Smarcescens Not Reported Not Detected (NotDetected); Staph lugdunensis Not Reported Not Detected (NotDetected); Staph spp. Not Reported DETECTED (NotDetected); Staphaureus Not Reported Not Detected (NotDetected); Staphepi Not Reported Not Detected (NotDetected); Stenmaltophilia Not Reported Not Detected (NotDetected); Strep agal(GrpB) Not Reported Not Detected (NotDetected); Strep pneum Not Reported Not Detected (NotDetected); Strep pyog (GrpA) Not Reported Not Detected (NotDetected); Strep spp Not Reported Not Detected (NotDetected)
[2023-11-03 17:10] LABS: Staphylococcus spp. DETECTED (NotDetected)
--- NOTE | 2023-11-03 19:11 | Billing Data ---
Date of Service November 03, 2023 Coding Level of Care Code 50014 INT INP/OBS CARE
[2023-11-03] MEDS ORDERED: ASPIRIN 81 MG ECTAB PO SCH (21:00)
--- OUTSIDE RECORDS SUMMARY | 2023-11-04 04:12 | External Medical Summary | Continuity of Care Document ---
Author Name Unknown Organization [facility] Address [address] [place] [id number] Care Team Providers Care Bathhouse Attendant Name Role Phone Penelpoe Molina Primary Care Physician [phone] Encounter [facility] [id number] Date(s): 10/26/23 - 10/27/[address] [id number] [phone] Encounter Diagnosis Severe aortic stenosis(Discharge Diagnosis) - 10/25/23 S/P TAVR (transcatheter aortic valve replacement)(Discharge Diagnosis) - 10/25/23 Discharge Disposition: Home or Self Care Attending Physician: MD Rees Marilou B Admitting Physician: MD Rees Marilou B Referring Physician: MD New Jeffrey G Allergies, Adverse Reactions, Alerts No Known Allergies Functional Status 10/27/23 Neurological Symptoms None ADLs Independent Facial Symmetry Symmetric Gait Steady Swallowing Difficulty None Level of Consciousness Neuro Alert Hallucinations Present None History of Fall in Last 3 Months Cronin Y es Presence of Secondary Diagnosis Cronin No Use of Ambulatory Aid Cronin None/bedrest /nurse assist IV/Heparin Lock Fall Risk Cronin Yes Gait/Transferring Fall Risk Cronin Normal /bedrest/immobile Mental Status Fall Risk Cronin Oriented t o own ability Cronin Fall Risk Score 45 Cronin Fall Risk Low Risk Speech Pattern Clear Immunizations Given and Recorded Vaccine Date Status Refusal Reason SARS-CoV-2 (COVID-19) mRNA-1273 vaccine 10/16/20 R ecorded SARS-CoV-2 (COVID-19) mRNA-1273 vaccine 09/17/20 R ecorded pneumococcal 13-valent vaccine 06/23/15 Recorded Zoster Vaccine Unspecified 03/16/12 Recorded pneumococcal 23-valent vaccine 03/18/10 Recorded Medications aspirin 81 mg oral delayed release tablet Start: 10/17/23 13:20:00 EDT, 1 tab, PO, Daily Start Date: 10/17/23 Status: Ordered atorvastatin 80 mg oral tablet Start: 10/17/23 13:21:00 EDT, 1 tab, PO, Daily Start Date: 10/17/23 Status: Ordered Cinnamon Start: 10/17/23 13:20:00 EDT, 4,000 mg =, PO, bid Start Date: 10/17/23 Status: Ordered clopidogrel 75 mg oral tablet Start: 10/17/23 13:21:00 EDT, 1 tab, PO, Daily Start Date: 10/17/23 Status: Ordered HumaLOG Sliding Scale Low Dose Range: SSI, injection, subQ, 10/26/23 22:00:00 EDT, 10/26/23 22:00:00 EDT, Estimated correction need for patients using total insulin daily dose between 31 and 60 units., 10/26/23 11:10:00 EDT Start Date: 10/26/23 Stop Date: 10/26/23 Status: Completed HumaLOG Sliding Scale Low Dose Range: SSI, injection, subQ, 10/27/23 7:30:00 EDT, 10/27/23 7:30:00 EDT, Estimated correction need for patients using total insulin daily dose between 31 and 60 units., 10/26/23 11:10:00 EDT Start Date: 10/27/23 Stop Date: 10/27/23 Status: Completed HumaLOG Sliding Scale Low Dose Range: SSI, injection, subQ, 10/26/23 16:30:00 EDT, 10/26/23 16:30:00 EDT, Estimated correction need for patients using total insulin daily dose between 31 and 60 units., 10/26/23 11:10:00 EDT Start Date: 10/26/23 Stop Date: 10/26/23 Status: Completed isosorbide mononitrate 60 mg oral tablet, extended release Start: 10/19/23 14:19:00 EDT, 1 tab, PO, qAM Start Date: 10/19/23 Status: Ordered Jardiance 25 mg oral tablet Start: 10/17/23 13:22:00 EDT, 1 tab, PO, Daily, Disp# 30 tab Start Date: 10/17/23 Status: Ordered losartan 100 mg oral tablet Start: 10/17/23 13:22:00 EDT, 1 tab, PO, Daily Start Date: 10/17/23 Status: Ordered metFORMIN 500 mg oral tablet Start: 10/17/23 13:21:00 EDT, 2 tab, PO, bid Start Date: 10/17/23 Status: Ordered metoprolol tartrate 50 mg, tablet, PO, 10/27/23 9:00:00 EDT, 10/27/23 9:00:00 EDT, 10/26/23 21:00:00 EDT Start Date: 10/27/23 Stop Date: 10/27/23 Status: Completed metoprolol tartrate 50 mg oral tablet Start: 10/27/23 9:16:00 EDT, 1 tab, PO, bid, Disp# 60 tab, Refills: 3, Pharmacy: [facility] Start Date: 10/27/23 Stop Date: 02/24/24 Status: Ordered multivitamin Start: 10/17/23 13:20:00 EDT, 1 tab, PO, Daily Start Date: 10/17/23 Status: Ordered tamsulosin 0.4 mg oral capsule Start: 10/17/23 13:21:00 EDT, 1 cap, PO, bid Start Date: 10/17/23 Status: Ordered TruBiotics Start: 10/17/23 13:21:00 EDT, 1 cap, PO, Daily Start Date: 10/17/23 Status: Ordered Tylenol 325 mg oral tablet Start: 10/27/23 9:16:00 EDT, 2 tab, PO, q4h, PRN: pain - mild (1-3) Start Date: 10/27/23 Status: Ordered Mental Status 10/26/23 Communication Barrier Present Yes Primary Language Armenian Problem List Condition Confirmation Course Effective Dates Status H ealth Status Informant (aortic stenosis) Confirmed Active Arthritis Confirmed Active Bleeding tendency Confirmed Active Chest pain Confirmed Active Diabetes Confirmed Active Bruising tendency Confirmed Active Heart murmur Confirmed Active Heartburn Confirmed Active History of intravascular stent placement Confirmed Active H/O knee surgery Confirmed Active High cholesterol Confirmed Active Hypertension Confirmed Active Frequent urination Confirmed Active Pain in leg, unspecified Confirmed Active Diagnosis Diagnosis Type Effective Dates Health Status Cl inical Service Informant Severe aortic stenosis Discharge Diagnosis 10/25/23 Non-Specified S/P TAVR (transcatheter aortic valve replacement) Discharge Diagnosis 10/25/23 Non-Specified Results Laboratory List Name Date Glucose Meter (GLUCOSE METER) 10/27/23 Basic Metabolic Panel (BMP) 10/27/23 Complete Blood Count w Differential (CBC w Platelets and Diff) 10/27/23 Glucose Meter (GLUCOSE METER) 10/26/23 Glucose Meter (GLUCOSE METER) 10/26/23 ACT, Celite, by IStat (Well Service Derrick Worker) (ACT CE LITE ISTAT (CATH)) 10/26/23 Creatinine, POC (Cath) (CREATINE,POC (CA TH)) 10/26/23 Istat Gases Venous (CCL, HVOU) (I-STAT G ,ZIGGY(CCL,HVOU)) 10/26/23 Albumin Level 10/26/23 Complete Blood Count (CBC w Platelets) NT-Pro BNP (BNP, NT-Pro) 10/26/23 Blood Type/Antibody Screen (for possible transfusion) 10/26/23 Blood Type (ABO/Rh) (ABO/RH) 10/26/23 Most recent to oldest [Reference Range]: 1 2 3 Hct, POC [38-51 %] 45 % (10/26/23 9:03 AM) Hgb, POC [12-17 g/dL] 15.3 g/dL (10/26/23 9:03 AM) ABO/Rh O NEGATIVE (10/26/23 9:02 AM) O NEGATIVE (10/26/23 8:56 AM) Antibody Scr NEGATIVE (10/26/23 8:56 AM) Expires at 0600AM on 10/29/2023 (10/26/23 8:56 AM) # Units 0 (10/26/23 8:56 AM) R Number NRQ (10/26/23 8:56 AM) eGFR CKD-EPI [>60 mL/min/1.73 m2] 88 mL/min/1.73 m2 (10/27/23 3:47 AM) Base Deficit (v), POC 4 mmol/L (10/26/23 9:03 AM) Blood Glucose [70-120 mg/dL] 146 mg/dL 1 *HI* (10/27/23 6:22 AM) 231 mg/dL 2 *HI* (10/26/23 8:55 PM) 137 mg/dL 3 *HI* (10/26/23 3:30 PM) Glu (wb), POC by IStat [70-105 mg/dL] 185 mg/dL *HI* (10/26/23 9:03 AM) SaO2(v), POC [40-70 %] 84 % *HI* (10/26/23 9:03 AM) BNP, NT-Pro [<450 pg/mL] 49901 pg/mL *HI* (10/26/23 9:02 AM) Estimated CrCl 66.29 mL/min (10/27/23 4:52 AM) MPV [9.0-12.2 fL] 11.3 fL (10/27/23 3:47 AM) 11.2 fL (10/26/23 9:02 AM) Immature Gran% 0.1 % (10/27/23 3:47 AM) Neut% 71.7 % (10/27/23 3:47 AM) Lymph% 14.9 % (10/27/23 3:47 AM) [place]% 11.7 % (10/27/23 3:47 AM) Baso% 0.4 % (10/27/23 3:47 AM) Eos% 1.2 % (10/27/23 3:47 AM) Immat Gran, Abs [0-0.4 K/uL] 0.01 K/uL (10/27/23 3:47 AM) Neut, Abs [2.0-7.7 K/uL] 4.85 K/uL (10/27/23 3:47 AM) Lymph, Abs [1.0-3.4 K/uL] 1.01 K/uL (10/27/23 3:47 AM) [place], Abs [0-1.0 K/uL] 0.79 K/uL (10/27/23 3:47 AM) Baso, Abs [0-0.1 K/uL] 0.03 K/uL (10/27/23 3:47 AM) Eos, Abs [0-0.5 K/uL] 0.08 K/uL (10/27/23 3:47 AM) Type of Diff: AUTO (10/27/23 3:47 AM) RDW [11.5-14.2 %] 13.7 % (10/27/23 3:47 AM) 13.7 % (10/26/23 9:02 AM) Ion Ca(wb), POC [1.12-1.32 mmol/L] 1.24 mmol/L (10/26/23 9:03 AM) Na (wb), POC [138-146 mmol/L] 138 mmol/L (10/26/23 9:03 AM) K (wb), POC [3.5-4.9 mmol/L] 4.3 mmol/L (10/26/23 9:03 AM) pH (v), POC [7.31-7.41 unit] 7.404 unit (10/26/23 9:03 AM) pCO2 (v), POC [41-51 mmHg] 32.0 mmHg *LOW* (10/26/23 9:03 AM) pO2 (v), POC 46 mmHg (10/26/23 9:03 AM) HCO3(v), POC [23-28 mmol/L] 20.1 mmol/L *LOW* (10/26/23 9:03 AM) Component RED CELLS (10/26/23 8:56 AM) Cret, POC [0.6-1.3 mg/dL] 1.2 mg/dL (10/26/23 9:04 AM) Anion Gap [5-14 mmol/L] 12 mmol/L (10/27/23 3:47 AM) Alb [3.5-5.2 g/dL] 3.6 g/dL (10/26/23 9:02 AM) BUN [6-23 mg/dL] 18 mg/dL (10/27/23 3:47 AM) Ca [8.4-10.2 mg/dL] 8.7 mg/dL (10/27/23 3:47 AM) Cl- [98-107 mmol/L] 105 mmol/L (10/27/23 3:47 AM) HCO3 [22-29 mmol/L] 20 mmol/L *LOW* (10/27/23 3:47 AM) Cret [0.70-1.30 mg/dL] 0.83 mg/dL (10/27/23 3:47 AM) Glu [74-109 mg/dL] 164 mg/dL 4 *HI* (10/27/23 3:47 AM) Gluc Meter [74-109 mg/dL] 146 mg/dL *HI* (10/27/23 6:22 AM) 231 mg/dL *HI* (10/26/23 8:46 PM) 137 mg/dL *HI* (10/26/23 3:29 PM) Hct [39-48 %] 41.2 % (10/27/23 3:47 AM) 44.1 % (10/26/23 9:02 AM) Hgb [13.0-17.0 g/dL] 13.7 g/dL (10/27/23 3:47 AM) 14.9 g/dL (10/26/23 9:02 AM) K [3.5-5.1 mmol/L] 4.3 mmol/L 5 (10/27/23 3:47 AM) MCH [28-33 pg] 30.9 pg (10/27/23 3:47 AM) 31.7 pg (10/26/23 9:02 AM) MCHC [32-36 g/dL] 33.3 g/dL (10/27/23 3:47 AM) 33.8 g/dL (10/26/23 9:02 AM) MCV [81-96 fL] 92.8 fL (10/27/23 3:47 AM) 93.8 fL (10/26/23 9:02 AM) Na [136-145 mmol/L] 137 mmol/L (10/27/23 3:47 AM) Plts [150-350 K/uL] 145 K/uL *LOW* (10/27/23 3:47 AM) 183 K/uL (10/26/23 9:02 AM) RBC [4.40-5.60 M/uL] 4.44 M/uL (10/27/23 3:47 AM) 4.70 M/uL (10/26/23 9:02 AM) ACT (Celite), POC [74-125 seconds] 244 seconds *HI* (10/26/23 10:39 AM) Temp(v) 36.2 C (10/26/23 9:03 AM) WBC [4.0-10.4 K/uL] 6.77 K/uL (10/27/23 3:47 AM) 6.79 K/uL (10/26/23 9:02 AM) 1Result Comment: Performed at: [facility], [address] [place] [address] [place] [phone] 2Result Comment: Performed at: [facility], [address] [place] [address] [place] [phone] 3Result Comment: Performed at: [facility], [address] [place] [address] [place] [address] 4Result Comment: ADA recommendation for FASTING Serum/Plasma Glucose: Normal: 70-100 mg/dL Prediabetes: 100-125 mg/dL Diabetes: 126 mg/dL or higher 5Result Comment: HEMOLYZED SPECIMEN Radiology Reports * Exam Date Time Procedure Performing Provider Status 10/27/23 9:22 AM Echo TransTHORacic TTE Limited Pamela Perez; Final Notes: (Echo TransTHORacic TTE Limited) Reason For Exam: s/p TAVR Edwars #[id number] Echo TransTHORacic TTE Limited Report Signatures Finalized by Dr. Melba Chirinos MD on 10/27/2023 11:09 AM [place] Act 112: No-No further action needed Summary 1. History of s/p TAVR (26 mm Glass Jazmine 3 Ultra Resilia Valve) 10/26/23. 2. Dilated LV with severely reduced systolic function, EF 29% by Norton's biplane. 3. Eccentric hypertrophy. 4. Global hypokinesis. 5. Grade III diastolic dysfunction of the left ventricle (restrictive filling pattern). 6. Severely dilated left atrium size. 7. Atrial septal aneurysm without evidence of obvious shunting. Small shunt evaluation precluded by image quality. 8. Stented bioprosthetic aortic valve without significant stenosis or regurgitation through or around the valve leaflets. Peak velocity 1.5 m/s, mean gradient 5 mm Hg, EOA 2.3 cm2, DVI = 0.51. 9. Calcified, restricted leaflets with mild-moderate central MR. No significant stenosis. 10. Moderately elevated pulmonary artery pressures, estimated PASP 57 mmHg. 11. Dilated ascending aorta measuring 4.0 cm. 12. No prior studies for comparison. Patient Info Name: ALLIE FRANCISCO Age: 78 years : 1945 Gender: Male Ht: 170 cm Wt: 66 kg BSA: 1.77 m2 HR: 88 bpm BP: 133 / 83 mmHg Heart Rhythm: Sinus Rhythm Technical Quality: Fair Exam Date: 10/27/2023 7:08 AM Exam Location: [facility]. E/W [id number] Patient Status: Inpatient Staff Ordering Physician: Christel Gillis Cheesemaking Laborer: LINA Montero Attending Physician: Sandra Rees Study Info CPT 69107 - 49011 - 78669 - Indications Z952 - Presence of prosthetic heart valve - s/p TAVR Edwars #26 Procedure(s) * A limited two-dimensional transthoracic echocardiogram was performed. * Color Doppler was performed. * Limited spectral Doppler was performed. Exam Type: Cardiac Basic Left Ventricle Dilated LV with severely reduced systolic function, EF 29% by Norton's biplane. Global hypokinesis. Eccentric hypertrophy. Grade III diastolic dysfunction of the left ventricle (restrictive filling pattern). Right Ventricle Normal right ventricular size and function. Left Atrium Severely dilated left atrium size. Right Atrium Right atrial area is mildly enlarged. Atrial Septum Atrial septal aneurysm without evidence of obvious shunting. Small shunt evaluation precluded by image quality. Aortic Valve Stented bioprosthetic aortic valve without significant stenosis or regurgitation through or around the valve leaflets. Peak velocity 1.5 m/s, mean gradient 5 mm Hg, EOA 2.3 cm2, DVI = 0.51. Pulmonic Valve Structurally unremarkable pulmonic valve with no significant flow abnormalities. Mitral Valve Calcified, restricted leaflets with mild-moderate central MR. No significant stenosis. Tricuspid Valve Moderately elevated pulmonary artery pressures, estimated PASP 57 mmHg. Trace tricuspid regurgitation. Pericardium/Pleural Trace physiologic pericardial effusion. Inferior Vena Cava Normal IVC size and inspiratory collapse. Aorta Dilated ascending aorta measuring 4.0 cm. Left Ventricular Outflow Tract Name Value Normal LVOT 2D LVOT Diameter 2.4 cm LVOT Doppler LVOT Peak Velocity 0.75 m/s LVOT Peak Gradient 2 mmHg LVOT Mean Gradient 1 mmHg LVOT VTI 13.78 cm LVOT VTI/AV VTI Ratio 0.52 LVOT Stroke Volume 59.77 ml LVOT Stroke Volume Index 0.03 l/m2 LVOT Cardiac Output 5.26 l/min LVOT Cardiac Index 2.97 L/min/m2 Mitral Valve Name Value Normal MV Doppler MV Peak Velocity 1.42 m/s MV Peak Gradient 8 mmHg MV Mean Gradient 2 mmHg MV VTI 30.43 cm MV PHT 51 ms MV Area (Cont Eq VTI) 2.0 cm2 MV Area Index (Cont Eq VTI) 1.11 cm2/m2 MV Diastolic Function MV E Peak Velocity 1.14 m/s <=0.50 MV A Peak Velocity 0.31 m/s MV E/A 3.73 <=0.80 MV Decel Time 174 ms MV Annular TDI MV Septal s' Velocity 2.61 cm/s MV Septal e' Velocity 2.82 cm/s >=7.00 MV Septal a' Velocity 3.09 cm/s MV E/e' (Septal) 40.6 <=8.0 MV Lateral s' Velocity 4.70 cm/s MV Lateral e' Velocity 11.11 cm/s >=10.00 MV Lateral a' Velocity 3.73 cm/s MV E/e' (Lateral) 10.29 <=8.00 MV e' Average 6.96 MV E/e' (Average) 25.44 <=14.00 Tricuspid Valve Name Value Normal TV Regurgitation Doppler TR Peak Velocity 3.52 m/s <=2.80 TR Peak Gradient 49 mmHg Estimated PAP/RSVP RA Pressure 8 mmHg <=5 PA Systolic Pressure 57 mmHg <40 TV Annular TDI TV Lateral Lizbeth s' Velocity 11.8 cm/s 9.5-18.7 TV Lateral Lizbeth e' Velocity 6.1 cm/s <7.8 TV Lateral Lizbeth a' Velocity 16.91 cm/s Aorta Name Value Normal Ascending Aorta Mid Asc Ao Diameter 4.0 cm Venous Name Value Normal IVC/SVC IVC Diameter (Insp 2D) 0.9 cm IVC Diameter (Exp 2D) 2.1 cm <=2.1 IVC Diameter Percent Change (2D) 59 % >=50 Aortic Valve Name Value Normal AV Doppler AV Peak Velocity 1.46 m/s <2.00 AV Peak Gradient 9 mmHg AV Mean Gradient 5 mmHg <20 AV VTI 26.45 cm AV Area (Cont Eq VTI) 2.3 cm2 >=2.0 AV Area Index (Cont Eq VTI) 1.28 cm2/m2 AV Area (Cont Eq Ross) 2.2 cm2 AV Area Index (Cont Eq Ross) 1.26 cm2/m2 AV V1/V2 Ratio 0.51 AV Regurgitation 2D LVOT Area 4.3 cm2 Ventricles Name Value Normal LV Dimensions 2D/MM IVS Diastolic Thickness (2D) 1.1 cm 0.6-1.0 LVID Diastole (2D) 5.6 cm 3.6-5.6 LVIW Diastolic Thickness (2D) 1.1 cm 0.6-1.0 LVID Systole (2D) 4.6 cm 2.5-4.0 LVOT Diameter 2.4 cm LV Mass (2D Cubed) 255.09 g 88.00-224.00 LV Mass Index (2D Cubed) 0.01 g/cm2 0.00-0.01 Relative Wall Thickness (2D) 0.41 LV Fractional Shortening/Ejection Fraction 2D/MM LV Fractional Shortening (2D) 17 % 25-43 LV Diastolic Volume (4C MOD) 167 ml LV Diastolic Volume (2C MOD) 137 ml LV Diastolic Volume (BP MOD) 152 ml 62-150 LV Diastolic Volume Index (BP MOD) 85.68 ml/m2 34.00-74.00 LV Systolic Volume (BP MOD) 108 ml 21-61 LV Systolic Volume Index (BP MOD) 61.25 ml/m2 11.00-31.00 LV EF (BP MOD) 29 % 57-68 LV SV (BP MOD) 43.20 ml LV End Diastolic Volume (BP A-L) 166.24 ml LV End Systolic Volume (BP A-L) 113.66 ml LV EF (BP A-L) 32 % RV Dimensions 2D/MM RV Basal Diastolic Dimension 4.6 cm 2.5-4.1 TAPSE 1.7 cm >=1.7 Atria Name Value Normal LA Dimensions LA Area (4C) 29.8 cm2 LA Length (4C) 6.5 cm LA Area (2C) 30.9 cm2 LA Length (2C) 6.0 cm LA Volume (4C A-L) 115.46 ml LA Volume (2C A-L) 134.41 ml LA Volume (BP A-L) 129 ml 18-58 LA Volume Index (BP A-L) 73.19 ml/m2 <=34.00 RA Dimensions RA Area (4C) 22.3 cm2 <=18.0 Final Signed by:MD Chirinos Amanda Signed (Electronic Signature):10/27/2023 7:08 a Vital Signs Most recent to oldest [Reference Range]: 1 2 3 Height 170.1 cm (10/25/23 9:45 AM) Patient Weight 66.2 kg (10/27/23 3:31 AM) 67.5 kg (10/26/23 8:30 AM) Body Mass Index 23.33 kg/m2 (10/26/23 8:30 AM) Temperature [36.5-37.9 DegC] 36.7 DegC (10/27/23 8:52 AM) 36.3 DegC *LOW* (10/27/23 3:31 AM) 36.6 DegC (10/26/23 11:25 PM) Heart Rate 79 bpm (10/27/23 9:13 AM) 99 bpm (10/27/23 8:52 AM) 74 bpm (10/27/23 3:31 AM) Respiratory Rate 18 br/min (10/27/23 8:52 AM) 18 br/min (10/27/23 3:31 AM) 18 br/min (10/26/23 11:25 PM) Blood Pressure 126/81mmHg (10/27/23 9:13 AM) 126/81mmHg (10/27/23 8:52 AM) 133/83mmHg (10/27/23 3:31 AM) Mean Blood Pressure 96 mmHg (10/27/23 9:13 AM) 96 mmHg (10/27/23 8:52 AM) 97 mmHg (10/27/23 3:31 AM) Cuff Pulse Pressure 45 mmHg (10/27/23 8:52 AM) 50 mmHg (10/27/23 3:31 AM) 48 mmHg (10/26/23 11:25 PM) BP Location # 1 Non-invasive (10/27/23 8:52 AM) Right Arm (10/27/23 3:31 AM) Right Arm (10/26/23 11:25 PM) Social History Social History Type Response Smoking Status Never smoked cigaret eber Sex Male Cardiology * Contributor_system, [email or web address]: VERIFY, PERFORM Event Display: EKG Authored Date: [id number] Please click on link to see image. * Contributor_system, [email or web address]: VERIFY, PERFORM Event Display: EKG Authored Date: [id number] Please click on link to see image. * Contributor_system, MUSE01: VERIFY, PERFORM Event Display: EKG Authored Date: [id number] Please click on link to see image. Pre-OP H & P * MONCHO Gillis Theresa: PERFORM, MODIFY Event Display: Pre-OP H & P Authored Date: [id number] PRE-OPERATIVE HISTORY AND PHYSICAL Name: ALLIE FRANCISCO Patient Number: [id number] : 1945 Date of Service: 10/25/2023 PRE-OP Diagnosis: severe symptomatic aortic stenosis Planned Procedure: transfemoral TAVR Chief Complaint:Dyspnea on exertion and chest discomfort History of Present Illness (including history relevant to procedure): is an 78 year oldmalewith a past medical history of CAD s/p PCI to circumflex (2009 with 2 BMS) and RCA (2018), hypertension, hypercholesterolemia, type II Diabetes, BPH and aortic stenosis. He had serial echocardiograms and felt fairly well until 6 months ago when he experienced exertional dyspnea and chest discomfort after meals. He used Imdur and the symptoms improved for a while. However, the symptoms recurred over the last few months and are now occurring even if he has not eaten.A transthoracic echocardiogram on09/23/2023 showed an EF of60% with severe aortic stenosis (peak velocity 3.8, Mean gradient 31, ENMANUEL 1.3 indexed to 0.57, DI 0.28-0.28). GivenhisNYHA class ofIIsymptoms and echo findings,hewas referred to our multidisciplinary team for further evaluation and treatment plan.Hewas evaluated by interventional cardiology() and cardiothoracic surgery (). STS1.47 %. CT angiography demonstrated vasculature amenable for transcatheter approach.Patient was presented with treatment options forhissevere aortic stenosis.Patient was given shared decision making tool from [employer] decision aid fortreatmentoptions for severe aortic stenosisfor patients decidingbetween TAVIand surgery was reviewed with patient.Using shared decision making with patient and SHD team the patient wished to proceed with TAVR.Hepresents electively for this today. Review Of Systems: A 10 point ROS was completed and all other systems are negative except for what is noted in the HPI. Past Medical History: Problems: History of intravascular stent placement H/O knee surgery Diabetes Arthritis Frequent urination Heartburn Bleeding tendency Bruising tendency Pain in leg, unspecified High cholesterol Hypertension Chest pain Heart murmur (aortic stenosis) Procedure History Procedure Procedure Date Comments None Allergies and Sensitivities: NKA Current Home Meds: (Last Updated 10/24 09:48) aspirin (aspirin 81 mg oral delayed release tablet) 81 mg PO Daily atorvastatin (atorvastatin 80 mg oral tablet) 80 mg PO Daily bifidobacterium-lactobacillus (TruBiotics) 1 cap PO Daily cinnamon (Cinnamon) 4,000 mg PO bid clopidogrel (clopidogrel 75 mg oral tablet) 75 mg PO Daily empagliflozin (Jardiance 25 mg oral tablet) 25 mg PO Daily isosorbide mononitrate (isosorbide mononitrate 60 mg oral tablet, extended release) 60 mg PO qAM IMDUR (isosorbide mononitrate) is a SUSTAINED RELEASE tablet typically dosed daily. Do not confuse with ISORDIL (isosorbide dinitrate) commonly dosed three times daily. Sybil Dykes 10/18 14:19 losartan (losartan 100 mg oral tablet) 100 mg PO Daily metFORMIN (metFORMIN 500 mg oral tablet) 1,000 mg PO bid metoprolol (metoprolol tartrate 25 mg oral tablet) 25 mg PO bid multivitamin 1 tab PO Daily tamsulosin (tamsulosin 0.4 mg oral capsule) 0.4 mg PO bid No Vital Signs Data Available Initial Wt: No Data Available Physical Exam: (relevant to the procedure, including heart and lung evaluation) General: NAD. HEENT: Symmetric, atraumatic. Neck: No JVD. CV:RRR_,audible murmur1/6 Pulm: Respirations even and unlabored. Lungs clear to auscultation bilaterally. No rales, wheezing or rhonchi. Abd: Abdomen soft, non-tender and non-distended with BS audible x 4. Extremities: No edema, pulses palpable. Femoral R/L:+1Pedal R/L:+1Radial R/L:+2 Skin: Warm and dry to touch.Abdominal and groin folds without redness or signs of infection. Neuro: Awake, alert and orientated x 3. Studies of Lab Results (relevant to the procedure): Please see Powerchart for full preop testing results. ASSESSMENT AND PLAN: is an 78 year oldmale with severe, symptomatic aortic stenosis and medical history as noted above. Patient presents today with plan fortransfemoralTAVR after having been evaluated by the multidisciplinary team and identified as an appropriate candidate, STS as above. Procedure was reviewed with patient and family present at bedside including risk, benefits and alternatives as well as postprocedural expectations. Patient was given adequate time to review and ask questions as needed. All questions answered to patient satisfaction. Patient denied further questions, verbalized understanding and expressed interest in moving forward. Informed consent was obtained. Electronic Signature on File Electronically Reviewed/Signed by: MOCNHO Potts Author Signature Dt/Tm:10/26/2023 08:42 AM Division of Interventional Cardiology TM * MD Cee, Stu: PERFORM Event Display: Pre-OP H & P Authored Date: [id number] He has progressive dyspnea and severe aortic stenosis by echocardiography. This is a class I indication for aortic valve replacement. After discussion, he preferred TAVR. The expected benefits were described. I explained the anticipated risks as 2% , 2% stroke, 3 to 4% major vascular injury. In addition there is a 5 to 10% chance of needing a permanent pacemaker. All questions were answered. Electronic Signature on File Electronically Reviewed/Signed by: Stu Mike MD Author Signature Dt/Tm:10/26/2023 09:30 AM [facility], [place] [address] [address] [facility], [address], [place] [address] Surgical operation note * MD Negrita, Sandra Murray: PERFORM Event Display: .Operative Report Authored Date: [id number] Name:ALLIE FRANCISCO Patient Number:[id number] :1945 Date of Service:10/27/2023 Operation Date of Procedure: 10/26/2023 Interventional MD:Stu Simmons MD Surgical MD:: Sandra Rees MD Case Start: 10:18 Case End: 10:50 Procedure(s): Temporary Pacer, Aortography, Lower Extremity Angiogram, and Transcatheter Aortic Valve Replacement Diagnosis: Successful Placement of a 26 mm Glass Jazmine 3 Ultra Resilia Valve (TAVR) Using Percutaneous Access and Monitored Anesthesia Care History: This man presented with burning chest pain in approximately 2009. He had stent(s) placed in his circumflex, and the symptoms resolved. He believes that treatment for lipids, blood pressure, and diabetes began shortly thereafter. His symptoms returned in 2018 and he underwent PCI with a 3.5 x 28 and 4.5 x 30 mm stents placed inhis right coronary. The presentation was similar. A murmur was noted at some time after 2009. He has had serial echocardiograms and felt fairly well until the last 6+ months. In the fall he described exertional dyspnea and chest discomfort aftermeals. He used Imdur, and the symptoms improved for a while. However, the symptoms recurred over the last few months and are now occurring even if he has not eaten. He describes both dyspnea and a "heartburn" when he walks even short distances now. He does not have symptoms at rest, and he denies syncope, palpitations, neurologic symptoms, claudication, edema, orthopnea, or PND. Echocardiography in Feb 2023 showed normal LV function with a peak velocity of 3.5 m/s, DI 0.21, mean gradient 28 mmHg, and ENMANUEL 0.[address] angiography showed a suitable annular size for TAVR. His femoral and iliac vessels would permit a femoral approach. He has severe with symptoms. This is a class I indication for AVR. His age makes TAVR preferable. Procedure Technique: Informed consent was obtained from the patient. He was brought to the catheterization laboratory,placed in the supine position, and prepared in standard fashion. A team time-out was performed. Monitored anesthesia care was provided. Using ultrasonic guidance, the left femoral vein was entered with a 21 gauge needle, and a 5 FrenchMicrocatheter was placed. After the introduction of a 0.035" wire, 7 Slovak sheath was then placed in the left femoral vein. Using ultrasonic guidance, the left femoral artery was entered with a 21 gauge needle, and a 5 Slovak Microcatheter was placed. After the introduction of a 0.035" wire, a A 7French sheath was placed in the left femoral artery. Using ultrasonic guidance, the right common femoral artery was entered with a 21 gauge needle, and a 5 Slovak Microcatheter was placed. A ReksoftA depth finder was used for measurements (3 + 1).A 7 Slovak sheath was placed in the right femoral artery. A 5 Slovak, balloon-tipped, temporary pacing wire was advanced through the sheath in the left femoral vein and steered to the RV apex. Adequate capture was confirmed. A 6 Slovak pigtail catheter was advanced through the sheath in the left femoral artery and positioned in the right sinus of the aortic valve. Aortography was used to identify a coplanar view. A 6 Slovak pigtail was advanced through the sheath in the right femoral artery until it reached the thoracic aorta. The soft wire was replaced with a Lunderquist wire, and a 14 Slovak eSheath was inserted into the right BEATER ROOM SUPERVISOR. Heparin was given as an 8,000 unit bolus. Additional dosing was guided by the ACT. Via the 14 Slovak eSheath, a 6 Slovak AL1 catheter was used successfully to steer a 0.035" 150 cm straight wire through the aortic valve. The AL1 was advanced into the ventricle, after which the straight wire was replaced with a 0.035" x 260 cm j-wire. The AL1 was removed and replaced with a pigtail catheter, and the pigtail was used to place a Safari wire in the LV apex. A 26 mm Glass Sapien3 Ultra Resilia valve had been prepared on the back table (nominal). The valve was advanced into the thoracic aorta and mounted on its delivery balloon. The Jazmine 3 valve was then advanced across the makah aortic valve, and the pusher was withdrawn. During rapid ventricular pacing, the valve was deployed. After deflation of the deployment balloon, rapid pacing was stopped. Aortography showed mild-moderate regurgitation. An additional 1.0 ml (23 + 1.0 = 24.0 ml) of diluted contrast was added to the delivery balloon. The balloon was then advanced across the aortic valve. During rapid ventricular pacing, the balloon was inflated. After deflation of the deployment balloon, rapid pacing was stopped. Aortography showed mild-moderate regurgitation. An additional 1.0 ml (23 + 1.0 + 1.0 = 25.0 ml) of diluted contrast was added to the delivery balloon. The balloon was then advanced across the aortic valve. During rapid ventricular pacing, the balloon was inflated. After deflation of the deployment balloon, rapid pacing was stopped. Aortography showed minimal regurgitation. Protamine was given. The 14 Slovak eSheath was removed, and the 18 Slovak MANTA device was deployed. Angiography showed no extravasation, dissection, or narrowing. The sheath was removed from the left femoral artery, and hemostasis was obtained with a single Perclose ProStyle device. Hemostasis was secure. The pacing wire was removed from the sheath in the leftfemoral vein. The sheath was removed from the left femoral vein, and hemostasis was obtained with asingle Perclose ProStyle device. Hemostasis was secure. The patient was transported to the [facility] in stable condition. Iris Lin, and Cee were co-operators operators for the procedure. Impression * Successful Placement of a 26 mm Glass Jazmine 3 Ultra Resilia Valve (TAVR) Using Percutaneous Access and Monitored Anesthesia Care [1] [1]Cardiac Cath; MD Cee, Stu 10/26/2023 10:18 EDT Electronic Signature on File Electronically Reviewed/Signed by: Sandra Rees MD Author Signature Dt/Tm:10/27/2023 12:15 PM Division of Cardiothoracic Surgery MBP .D/C Summary * CHELE Fairchild, Ketan Vidal: PERFORM Event Display: .D/C Summary Authored Date: [id number] [facility] For medical concerns, call: . Address: [address] [place] [address] [place] [address] (HOME) [phone] (MOBILE) :1945 . Date of Admission:10/26/2023 Date of Discharge:10/27/2023 Physician:MD Rees Marilou B Service:Cardiac Surgery Discharge Disposition:Home Primary Care Provider/Phone: MD MOLINA CYNTHIA D (BUSINESS) [phone] (FAX BUSINESS) Principal Diagnosis: Other Diagnoses: S/P TAVR (transcatheter aortic valve replacement) Severe aortic stenosis Major Tests and Procedures: s/p TAVR Glass #26 10/26/2023 Hospital Course: Hospital Course: The patient was taken to the [facility] on10/26/23 and underwent transfemoral TAVR. The procedure was without complications and [facility] The patients activity and diet were advanced. Medications were titrated appropriately and oxygen was weaned off. Post-operative echocardiogram was within normal limits. Aspirin 81 mg and Plavix 75mgdaily. The patient was discharged in stable condition after being instructed on wound care, diet and activity restrictions. They have 1 month follow up with scheduled ECHO on 12/05/23.Yearly follow up with your ballistics laboratory gunsmith is also required. We thank you for the opportunity to participate in the care of your patient. Please do not hesitateto contact us with any questions. Sincerely, [facility] Cardiac Surgery Service PLAN: 1.At discharge, he should continue his previous home medications 2.Continue aspirin and plavix. 3.Cardiac rehab ordered at discharge. Patient will be notified. 4. Will increase metoprolol tartrate from 25 mg BID to 50 mg BID based on EF echo results (noted above) to optimize GDMT. 5..Follow up with [facility] in 30 days with TTE which will also reevaluate his EF and in1 year with TTE have been arranged. 6.He has dentures and will not require lifelong SBE prophylaxis prior to any dental procedure. Exam on Discharge: Vitals & Measurements: T:36.7C TMIN:36.3C TMAX:36.7C HR:79(Monitored) RR:18 BP:126/81 SpO2:97% Oxygen Therapy:Room air WT:66.2kg General: NAD, alert& oriented x4 Lung: Unlabored respirations, on RA CV: RRR GI:soft, non-tender, non-distended Extremities: +1 LE edema Incisions: CDI, healing well Discharge Medications: 1.Cinnamon (Cinnamon) by mouth 2 times daily. 2.Multivitamin 1 tab by mouth once daily. 3.Atorvastatin (atorvastatin 80 mg oral tablet) 80 mg (1 tab) by mouth once daily. 4.Tamsulosin (tamsulosin 0.4 mg oral capsule) 0.4 mg (1 cap) by mouth 2 times daily. 5.Empagliflozin (Jardiance 25 mg oral tablet) 25 mg (1 tab) by mouth once daily. 6.Losartan (losartan 100 mg oral tablet) 100 mg (1 tab) by mouth once daily. 7.MetFORMIN (metFORMIN 500 mg oral tablet) 1,000 mg (2 tab) by mouth 2 times daily. 8.Bifidobacterium-lactobacillus (TruBiotics) 1 cap by mouth once daily. 9.Clopidogrel (clopidogrel 75 mg oral tablet) 75 mg (1 tab) by mouth once daily. 10.Aspirin (aspirin 81 mg oral delayed release tablet) 81 mg (1 tab) by mouth once daily. 11.Isosorbide mononitrate (isosorbide mononitrate 60 mg oral tablet, extended release) 60 mg (1 tab) by mouth once a day (in the morning). 12.Metoprolol (metoprolol tartrate 50 mg oral tablet) 50 mg (1 tab) by mouth 2 times daily. 13.Acetaminophen (Tylenol 325 mg oral tablet) 650 mg (2 tab) by mouth every 4 hours, as needed for pain - mild (1-3). Allergies and Sensitivities: NKA Tests Pending: None Scheduled Appointments: Date/Time:Provider/Resource: [facility]Instructions:[facility] [place] - [facility], [address], [address], [address], [place] [address] . Please arrive 15 minutes earlier than your appointment time for the check in process. Date/Time:Provider/Resource: Nov 01:55 pmValve Clinic Location/Instructions:[facility] [place] - [facility], [facility] [address], [address], [address], [place] [address] . Please arrive 15 minutes earlier than your appointment time for the check in process. Discharge Services: No Post-Acute Placement(s) Listed No Post-Acute Service(s) Listed Immunizations Received this Hospital Stay: pneumococcal 13-valent vaccine (06/23/2015) pneumococcal 23-valent vaccine (03/18/2010) SARS-CoV-2 (COVID-19) mRNA-1273 vaccine (09/17/2020) SARS-CoV-2 (COVID-19) mRNA-1273 vaccine (10/16/2020) Zoster Vaccine Unspecified (03/16/2012) . Advance Directive:None I personally spent45 minutes in discharge planning. Electronic Signature on File Electronically Reviewed/Signed by: Ketan Fairchild PA-C Author Signature Dt/Tm:409:22 AM Division of Cardiothoracic Surgery Electronically Reviewed/Signed by: Sandra Rees MD Cosigner Signature Dt/Tm: 10/27/2023 10:02 AM Division of Cardiothoracic Surgery [facility] Discharge instructions * CHELE Fairchild Michael Rosario: PERFORM CHELE Fairchild Michael Rosario: PERFORM Event Display: Patient Discharge Instructions Authored Date: [id number] ALLIE FRANCISCO :1945 Visit Date:10/26/2023 Patient Discharge Instructions [facility] For medical concerns, call: . Date of Admission:10/26/2023 Date of Discharge:10/27/2023 Physician:MD Rees Marilou B Service:Cardiac Surgery Discharge Disposition:Home . Advance Directive:None Reason for Hospitalization Your Diagnoses S/P TAVR (transcatheter aortic valve replacement) Severe aortic stenosis My Health Patient Portal: [place] [employer] makes it easy for you to manage your health information online. My [place] [employer] is a free service that provides you instant, secure access to your medical information anytime, anywhere. Sign in or set up your account today at [email or web address] Thank you for allowing us to assist you with your healthcare needs. If you need additional community resources, [place] can help at [email or web address].org. 211 can assist you in connecting with social programs based on your unique needs and locations. 211 is an anonymous search that can help you locate resources for: Food, Housing, Transportation, Goods, Education and Healthcare. Medications Patient is enrolled in Rx-to-Go Program New medications will be delivered from [facility] to patient's room at discharge: Mon-Sun from 9AM-5 PM. Medications MUST be PICKED UP at [facility] if patient is discharged Mon-Sun after 5 PM or anytime on holidays. Please note, the [facility] closes at 8 PM on week and 5:30 PM on Saturdays, Sundays, and holidays. What How Much When Instructions Next Dose New acetaminophen (Tylenol 325 mg oral tablet) 2 tab(s) by mouth Every 4 hours as needed for pain - mild (1-3) Changed metoprolol (metoprolol tartrate 50 mg oral tablet) 1 tab(s) by mouth 2 times daily Dose increased Duration: 30 Days Pickup at [facility] [place] 10/26 in PM Unchanged aspirin (aspirin 81 mg oral delayed release tablet) 1 tab(s) by mouth Once daily 5in AM Unchanged atorvastatin (atorvastatin 80 mg oral tablet) 1 tab(s) by mouth Once daily 10/26 in PM Unchanged bifidobacterium-lactobacillus (TruBiotics) 1 cap by mouth Once daily Unchanged cinnamon (Cinnamon) 4,000 Milligram by mouth 2 times daily Unchanged clopidogrel (clopidogrel 75 mg oral tablet) 1 tab(s) by mouth Once daily 510 in AM Unchanged empagliflozin (Jardiance 25 mg oral tablet) 1 tab(s) by mouth Once daily Unchanged isosorbide mononitrate (isosorbide mononitrate 60 mg oral tablet, extended release) 1 tab(s) by mouth Once a day (in the morning) Unchanged losartan (losartan 100 mg oral tablet) 1 tab(s) by mouth Once daily 510 in AM Unchanged metFORMIN (metFORMIN 500 mg oral tablet) 2 tab(s) by mouth 2 times daily HOLD FOR 48 HOURS AFTER TAVR Unchanged multivitamin 1 tab(s) by mouth Once daily Unchanged tamsulosin (tamsulosin 0.4 mg oral capsule) 1 cap by mouth 2 times daily Pharmacy Information [facility] [place]: [facility] [place] [phone] Allergies NKA What to do next Instructions From Your Doctor Principal Discharge Dx: (PMH)Aortic Stenosis s/p TAVR Major Procedures: TAVR Post D/C Care Instructions: 1)If you have any questions please [phone] or [phone] [id number] through Tuesday 8am4pm. For any questions after 4pm, weekends or holidays, please [phone]. This number will connect you to the hospital rum processing operator and ask for the Tow Operator pharmacy operations specialist. 2)You may shower and wash incisions with soap and water daily. No bath tubs or pools until incisions are completely healed (3-5 days). Do not apply any creams, lotions or powders to incision until completely healed. 3)No driving for 1 week from the date of your surgery. 4)Keep legs elevated while sitting. 5)Walk at least 4 times per day with one longer walk per day. Increase the distance of that longer walk every week. This will help lessen your shortness of breath and fatigue. 6)Due to the replacement of your valve, you will be on aspirin 81mg daily for the remainder of your life. OR You will also be on antiplatelet medication clopidogrel (Plavix), if previously taking with aspirin, OR You will continue your warfarin, NOAC as previously prescribed. Please contact the above number if you notice any excessive bruising or bleeding upon discharge to home. 7)Take all medications as prescribed;if taking metformin, do not resume for 48 hours after yourprocedure day,please call above number if any questions. 8)Weigh yourself daily and record the number. Please bring weight record to follow up appointments, if directed. 9)Since you had a heart valve replaced, you will be required to take antibiotics prior to all procedure and dental appointments. Do NOT have any dental work for 3 months 10)No lifting, pushing, pulling anything over 10 pounds for 1 week. 11)CONTACT YOUR FAMILY DOCTOR OR CROSS ENTERPRISE INTEGRATOR FOR ALL MEDICATION REFILLS PLEASE Diet:Resumeyour regular diet Activity Guidelines: 1)No driving for 1 weeks since the date of your surgery. 2)Walk at least 4 times per day. You may use the stairs but limit the number of times during the first week while your strength and stamina returns. You may also place a chair at the top and bottom of the stairs to take a break if space allows for this. 3)No pulling, pushing or lifting anything heavier than 10 pounds for 1 week after surgery. 4) Cardiac Rehab referral has been made on discharge. A Cardiac Rehab closest to you will contact you in 3-4 weeks to begin outpatient therapy. We encourage you to participate in this program as theywill help monitor your medications, dietary changes and vital signs. They will also help you progress your activity level so that you can get the most out of your procedure. Call you Doctor if: Seek Immediate Attention by call 911 or going to the ER if you experience: 1)Chest pain 2)Heart beat faster than 120 beats per minute 3)Fainting spell 4)Sudden severe headache 5)Coughing up bright red blood 6)Bright red or black tarry stools 7)Shortness of breath not relieved by rest 8)Severe abdominal pain Call the Structural Heart Team at [facility] if you experience: 1)Temperature greater than 100 degrees. 2)Persistent cough with sputum. 3)Cloudy drainage from any surgical wound. Small amounts of clear or pink drainage are okay. Call if drainage is increased or changes color or thickness. 4)Increased swelling, redness , drainage from any surgical/access sites 5)Any lumps at the surgical access sites that have increased in size since discharge 6)Increased swelling of legs and feet. 7)Any weight gain of greater than 3 pounds in one day or 5 pounds in one week. 8)Worsening shortness of breath while walking, lying flat or talking. 9)Please call about any medication related questions. Urgent attention that can be managed by the family doctor: 1)New onset of nausea, vomiting or diarrhea. 2)Pain in the calf that becomes worse when you pull your toes towards your head. 3)Burning with urination or urinary frequency. 4)Skin rash. 5)Sore throat. Other Instructions: Follow-up appointments: 1)You are scheduled for a 1month follow up appointment and Ultrasound of your heart (ECHO) withthe Valve Clinicyou have this appointment already scheduled. 2)Please see your family doctor as needed. We recommend having at least annual appointments routinely. Worsening Symptoms or Concerns Call us if you have any of thefollowing: Fever over 100Fahrenheit Pain that is getting worse instead of getting better Redness or warmth at the wound Swelling or red streaks down your arm or leg Any wound drainage If you should have any questions/concerns regarding your procedure at this institution, please callMONCHO Mckeon at [phone] or MONCHO Taylor at [phone] If you are not able to reach the above phone numberbetween 8a-5p Tuesday- Tuesday, call the Heart and Vasculartoll-free number-LET THEM KNOW YOU HAVE HAD A TAVR [phone] GO PSI and ask for assistance. On weekends, holidays or before 8:00 a.m. or after 5:00 p.m.: , for the hospital rum processing operator to page theCardiology fellow exceptional needs teacher. for the Care Line, 24 hours a day, 7 days a week. When you get home, you should call the caregiver who referred you to us. If you cannot reach your primary care provider and have questions about the results of yourprocedure, you may call our cardiology office on weekdays between 8:00 a.m. and 5:00 p.m. at ; please ask for the Order Desk Clerk who performed your procedure. If you notice the following symptoms Contact the [facility] Care[facility] at . If unable to contact your physician and you feel it is an emergency, go to the nearest Emergency Room or call 911 Diet Instructions Activity Instructions Follow-Up Appointments Scheduled Follow-Up Appointments Date/Time:Provider/Resource: Nov 01:00 [facility] Rm1 Location/Instructions:[facility] [place] [facility], [address], [address], [address], [place] [address] . Please arrive 15 minutes earlier than your appointment time for the check in process. Date/Time:Provider/Resource: Nov 01:55 pmValve Clinic Location/Instructions:[facility] [place] - [facility], [address], [address], [address], [place] [address] . Please arrive 15 minutes earlier than your appointment time for the check in process. You Need to Schedule the Following Appointments Follow up [facility] physicianin next 1-2 weeks. The Following Services Have Been Arranged for You No Post-Acute Placement(s) Listed No Post-Acute Service(s) Listed Tests Pending None Procedures Performed s/p IVY Glass #26 10/26/2023 Special Instructions Common Emergency Awareness Tips Call 911 immediately if: experiencing any of the warning signs and symptoms of stroke: B.E. F.A.S.T. Balance: is there trouble with walking or coordination Eyes: is there double vision or visual loss Face: Smile, do both sides of face move equally Arm: Raise arms, do both arms move equally Speech: Is speech slurred or inappropriate Time: Time is critical, call 911 immediately Heart Attack Signs Chest discomfort: Most heart attacks involve discomfort in the center of the chest and lasts more than a few minutes, or goes away and comes back. It can feel like uncomfortable pressure, squeezing, fullness or pain. Discomfort in upper body: Symptoms can include pain or discomfort in one or both arms, back, neck, jaw or stomach. Shortness of breath: With or without discomfort. Other signs: Breaking out in a cold sweat, nausea, or lightheaded. Remember, MINUTES DO MATTER. If you experience any of these heart attack warning signs, call to get immediate medical attention! Patient Care team information Care Team Personnel Name: MD Jesse, Penelope Bardales Position: Referring Member Role: Primary Care Provider Address: Address: [address] [place] [id number] Name: MONCHO Dykes Kathleen R Position: Nurse Pract - Card Intv Cardiology Member Role: Lifetime Relationship Address: Address: [address] [place] [address] [address] [place] [address] Name: Emerson Carrasco Amanda Position: Pharmacist Schedule II Member Role: Pharmacy - Lifetime Care Team Related Persons Name: ALLIE FRANCISCO Address: [facility] Address: home [address] [place] [id number]
--- OUTSIDE RECORDS SUMMARY | 2023-11-04 04:13 | External Medical Summary | Continuity of Care Document ---
Author Name Unknown Organization [facility] [address] Address [address] [place] [address] [place]IK[place] SOLANO [id number] Care Team Providers Care Pta Name Role Phone Penelope Molina Primary Care Physician [phone] [id number] Date(s): 10/17/23 - 10/17/23 [facility] [place] [address], [address]tr[address], [address] [place] [address] [phone] Encounter Diagnosis Body mass index [BMI] 24.0-24.9, adult(Discharge Diagnosis) - 10/17/23 Aortic stenosis(Discharge Diagnosis) - 10/17/23 (aortic stenosis)(Discharge Diagnosis) - 10/17/23 CAD (coronary artery disease)(Discharge Diagnosis) - 10/17/23 Discharge Disposition: Home or Self Care Attending Physician: MONCHO Gillis Theresa Allergies, Adverse Reactions, Alerts No Known Allergies Medications aspirin 81 mg oral delayed release [...] PO, Daily Start Date: 10/17/23 Status: Ordered isosorbide mononitrate 60 mg oral tablet, extended [...] Start Date: 10/17/23 Status: Ordered metoprolol tartrate 25 mg oral tablet Start: 10/17/23 13:22:00 EDT, 1 tab, PO, bid Start Date: 10/17/23 Status: Ordered multivitamin Start: 10/17/23 13:20:00 EDT, 1 tab, PO, Daily Start Date: 10/17/23 Status: Ordered tamsulosin 0.4 mg oral capsule Start: 10/17/23 13:21:00 EDT, 1 cap, PO, bid Start Date: 10/17/23 Status: Ordered TruBiotics Start: 10/17/23 13:21:00 EDT, 1 cap, PO, Daily Start Date: 10/17/23 Status: Ordered Mental Status 10/17/23 Barriers to Learning one year None evide nt Mandatory Health Literacy Documentation Yes Health Literacy Communication Barriers N ever Primary Language Greek Problem List Condition Confirmation Course Effective Dates [...] Diagnosis Diagnosis Type Effective Dates Health Status inical Service Informant Body mass index [BMI] 24.0-24.9, adult Discharge Diagnosis 10/17/23 Non-Specified Aortic stenosis Discharge Diagnosis 10/17/23 Non-Specified (aortic stenosis) Discharge Diagnosis 10/17/23 CAD (coronary artery disease) Discharge Diagnosis 10/17/23 Vital Signs Most recent to oldest [Reference Range]: 1 Height 168.3 cm (10/17/23 1:28 PM) Patient Weight 68.4 kg (10/17/23 1:28 PM) Body Mass Index 24.15 kg/m2 (10/17/23 1:28 PM) Temperature [36.5-37.9 DegC] 36.6 DegC (10/17/23 1:28 PM) Heart Rate 62 bpm (10/17/23 1:28 PM) Respiratory Rate 16 br/min (10/17/23 1:28 PM) Blood Pressure 126/60mmHg (10/17/23 1:28 PM) Cuff Pulse Pressure 66 mmHg (10/17/23 1:28 PM) BP Location # 1 Right Arm, Manual (10/17/23 1:28 PM) Social History Social History Type Response Smoking Status Never smoked cigaret eber Sex Male Patient Care team information Care Team Personnel Name: MD Jesse, Penelope Bardales Position: Referring Member Role: Primary Care Provider Address: Address: [address] [place] [address] [place] [address] Care Team Related Persons Name: ALLIE FRANCISCO Address: [facility] Address: home [address] [place] BR[place]W [id number]
--- OUTSIDE RECORDS SUMMARY | 2023-11-04 04:13 | External Medical Summary | Continuity of Care Document ---
Author Name Unknown Organization [facility] Address [address] [place] [phone] Care Team Providers Care Tractor Mechanic Apprentice Name Role Phone Penelope Molina Primary Care Physician [phone] [id number] Date(s): 10/17/23 - 10/17/[address] [phone] Discharge Disposition: Home or Self Care Attending [...] PO, Daily Start Date: 10/17/23 Status: Ordered Problem List Condition Confirmation Course Effective Dates Status H ealt Status Informant (aortic stenosis) Confirmed Active Arthritis Confirmed Active Bleeding tendency Confirmed Active Chest pain Confirmed Active Diabetes Confirmed Active Bruising tendency Confirmed Active Heart murmur Confirmed Active Heartburn Confirmed Active History of intravascular stent placement Confirmed Active H/O knee surgery Confirmed Active High cholesterol Confirmed Active Hypertension Confirmed Active Frequent urination Confirmed Active Pain in leg, unspecified Confirmed Active Results Radiology Reports * Exam Date Time Procedure Performing Provider Status 10/17/23 11:[address] Angio Chest Alexei Hendrix Notes: (CT Angio Chest) Reason For Exam: TAVR eval CT Angio Chest EXAMINATION: CT Angio Chest, CT Angio Abdomen and Pelvis CLINICAL HISTORY: I35.0: Nonrheumatic aortic (valve) stenosis; TAVR eval COMPARISON: None TECHNIQUE: CT Angio Chest, CT Angio Abdomen and Pelvis CONTRAST: Contrast Type (IV): Omnipaque 350 Contrast Volume (IV) in ml: 100.00 DOSE: Total Reported Dose Length Product (DLP) = 1670.31 mGy.cm FINDINGS: CTA: Thoracic aorta: Patent TAVR. Three vessel left aortic arch. Calcified and noncalcified atherosclerosis. Short segment moderate bilateral common carotid luminal narrowing, right worse than left. AORTIC MEASUREMENTS: Aortic Angulation: 58.6 degrees Aortic Annulus: 27.6 x 21.2 mm. Average diameter: 24.2 mm. Perimeter: 77.6 mm; Area: 4.59 cm2 Left Cusp, Distance from the aortic annulus to the origin of the left coronary artery (LM): 16.6 mm Left Cusp, Distance from the aortic annulus to the STJ (LCC): 22.9 mm Right Cusp, Distance from the aortic annulus to the origin of the right coronary artery (RCA): 14.3mm Right Cusp, Distance from the aortic annulus to the STJ (RCC): 23.0 mm Non-Coronary Cusp, Distance from the aortic annulus to STJ: 25.2 mm Sinus of Valsalva: 34.9 x 33.4 x 33.7 mm LVOT (5 mm below): 31.6 x 22.5 mm. Average diameter 26.7 mm. Perimeter: 86.7 mm; Area: 5.58 cm2 Sinotubular junction: 30.4 x 28.2mm Average diameter: 28 mm. Perimeter: 92.9 mm; Area: 6.14 cm2 Maximum ascending diameter: 38.5 x 37.6 x 39.3mm (1165 mm2) Maximum descending diameter: 30.9 x 29.6 x 32.5 mm, (749 mm2) INTRA-ABDOMINAL AORTA: Normal caliber and contour. Calcified noncalcified atherosclerosis. No stenosis or aneurysmal dilation. MESENTERIC ARTERIES: Celiac trunk: Conventional anatomy of the celiac trunk with accessory right hepatic artery from theSMA. Calcified and noncalcified atherosclerosis with mild narrowing at the origin. Patent. Superior mesenteric artery: Calcified and noncalcified atherosclerosis. Patent. Renal arteries: Single renal arteries bilaterally. Calcified atherosclerosis at bilateral origins with mild luminal narrowing of the right renal artery origin. Patent bilaterally. Inferior mesenteric artery: Patent. . ILIOFEMORAL ARTERIES: Right iliofemoral arteries: Calcified and noncalcified atherosclerosis. Patent. Minimum diameter of the iliac arteries: 8.27 mm Minimum diameter of the common femoral artery at the level of the femoral head: 6.61 mm Left iliofemoral artery: Calcified noncalcified atherosclerosis. Left internal iliac artery measures up to 13 mm diameter. Minimum diameter of the iliac arteries: 8.73 mm Minimum diameter of the common femoral artery at the level of the femoral head: 8.13 mm CHEST: Pleura and lungs: Bilateral small pleural effusion with associated atelectasis, right larger than left. Calcified granuloma. No pneumothorax. Central airways: No endobronchial lesions. Lymph nodes: No lymphadenopathy by size criteria. Thyroid and Mediastinum: Unremarkable thyroid. Trace residual thymic tissue. Small hiatal hernia. Heart and Great vessels: Normal heart size. No pericardial effusion. Extensive calcified atherosclerosis of the coronary vessels. No large central pulmonary embolism. Aortic valve and mitral valve calcifications. Atherosclerosis of the thoracic aorta. ABDOMEN: Liver, Gallbladder \T\ bile ducts: No focal liver lesion. Unremarkable gallbladder. No biliary dilation. Pancreas: Unremarkable Spleen: Unremarkable Adrenals: Unremarkable Kidneys, collecting system and ureters: Symmetric renal enhancement. No hydronephrosis. Left renal sinuses. Retroperitoneum, lymph nodes, and vessels: No retroperitoneal lymphadenopathy. Vessels per above. Bowel \T\ Mesentery: No bowel obstruction. No mesenteric stranding or lymphadenopathy. Normal appendix. PELVIS: Bladder: Unremarkable for degree of distention. Reproductive organs: Prostate calcifications. Extraperitoneal, lymph nodes, vessels: No lymphadenopathy. Osseous and body wall: Multilevel degenerative changes of the spine. T3 superior endplate Schmorl'snode. IMPRESSION: 1. Aortic measurements described above. No acute complications. 2. Bilateral small pleural effusion. Dr. Alexei Crawford is the dictating resident. Finalized reports status indicates that the attendinghas reviewed the images and report, and agrees with the interpretation. Preliminary report status should be regarded as NOT interpreted by the attending radiologist. [place] Act 112: This study does not meet the requirements of [place] Act 112. Workstation ID: [id number] Final Dictated by:MD Crawford Anthony Robert Dictated DT/TM:10/19/2023 7:04 Resident:MD Crawford Anthony Robert Signed by:MD Kaylee, Josef Vale Signed (Electronic Signature):10/19/2023 7:03 a * Exam Date Time Procedure Performing Provider Status 10/17/23 11:[address] Angio Abdomen and Pelvis Alexei Hendrix V; Final Notes: (CT Angio Abdomen and Pelvis) Reason For Exam: TAVR eval CT Angio Abdomen and Pelvis EXAMINATION: CT Angio Chest, CT Angio Abdomen and Pelvis CLINICAL HISTORY: I35.0: Nonrheumatic aortic (valve) stenosis; TAVR eval COMPARISON: None TECHNIQUE: CT Angio Chest, CT Angio Abdomen and Pelvis CONTRAST: Contrast Type (IV): Omnipaque 350 Contrast Volume (IV) in ml: 100.00 DOSE: Total Reported Dose Length Product (DLP) = 1670.31 mGy.cm FINDINGS: CTA: Thoracic aorta: Patent TAVR. Three vessel left aortic arch. Calcified and noncalcified atherosclerosis. Short segment moderate bilateral common carotid luminal narrowing, right worse than left. AORTIC MEASUREMENTS: Aortic Angulation: 58.6 degrees Aortic Annulus: 27.6 x 21.2 mm. Average diameter: 24.2 mm. Perimeter: 77.6 mm; Area: 4.59 cm2 Left Cusp, Distance from the aortic annulus to the origin of the left coronary artery (LM): 16.6 mm Left Cusp, Distance from the aortic annulus to the STJ (LCC): 22.9 mm Right Cusp, Distance from the aortic annulus to the origin of the right coronary artery (RCA): 14.3mm Right Cusp, Distance from the aortic annulus to the STJ (RCC): 23.0 mm Non-Coronary Cusp, Distance from the aortic annulus to STJ: 25.2 mm Sinus of Valsalva: 34.9 x 33.4 x 33.7 mm LVOT (5 mm below): 31.6 x 22.5 mm. Average diameter 26.7 mm. Perimeter: 86.7 mm; Area: 5.58 cm2 Sinotubular junction: 30.4 x 28.2mm Average diameter: 28 mm. Perimeter: 92.9 mm; Area: 6.14 cm2 Maximum ascending diameter: 38.5 x 37.6 x 39.3mm (1165 mm2) Maximum descending diameter: 30.9 x 29.6 x 32.5 mm, (749 mm2) INTRA-ABDOMINAL AORTA: Normal caliber and contour. Calcified noncalcified atherosclerosis. No stenosis or aneurysmal dilation. MESENTERIC ARTERIES: Celiac trunk: Conventional anatomy of the celiac trunk with accessory right hepatic artery from theSMA. Calcified and noncalcified atherosclerosis with mild narrowing at the origin. Patent. Superior mesenteric artery: Calcified and noncalcified atherosclerosis. Patent. Renal arteries: Single renal arteries bilaterally. Calcified atherosclerosis at bilateral origins with mild luminal narrowing of the right renal artery origin. Patent bilaterally. Inferior mesenteric artery: Patent. . ILIOFEMORAL ARTERIES: Right iliofemoral arteries: Calcified and noncalcified atherosclerosis. Patent. Minimum diameter of the iliac arteries: 8.27 mm Minimum diameter of the common femoral artery at the level of the femoral head: 6.61 mm Left iliofemoral artery: Calcified noncalcified atherosclerosis. Left internal iliac artery measures up to 13 mm diameter. Minimum diameter of the iliac arteries: 8.73 mm Minimum diameter of the common femoral artery at the level of the femoral head: 8.13 mm CHEST: Pleura and lungs: Bilateral small pleural effusion with associated atelectasis, right larger than left. Calcified granuloma. No pneumothorax. Central airways: No endobronchial lesions. Lymph nodes: No lymphadenopathy by size criteria. Thyroid and Mediastinum: Unremarkable thyroid. Trace residual thymic tissue. Small hiatal hernia. Heart and Great vessels: Normal heart size. No pericardial effusion. Extensive calcified atherosclerosis of the coronary vessels. No large central pulmonary embolism. Aortic valve and mitral valve calcifications. Atherosclerosis of the thoracic aorta. ABDOMEN: Liver, Gallbladder \T\ bile ducts: No focal liver lesion. Unremarkable gallbladder. No biliary dilation. Pancreas: Unremarkable Spleen: Unremarkable Adrenals: Unremarkable Kidneys, collecting system and ureters: Symmetric renal enhancement. No hydronephrosis. Left renal sinuses. Retroperitoneum, lymph nodes, and vessels: No retroperitoneal lymphadenopathy. Vessels per above. Bowel \T\ Mesentery: No bowel obstruction. No mesenteric stranding or lymphadenopathy. Normal appendix. PELVIS: Bladder: Unremarkable for degree of distention. Reproductive organs: Prostate calcifications. Extraperitoneal, lymph nodes, vessels: No lymphadenopathy. Osseous and body wall: Multilevel degenerative changes of the spine. T3 superior endplate Schmorl'snode. IMPRESSION: 1. Aortic measurements described above. No acute complications. 2. Bilateral small pleural effusion. Dr. Alexei Crawford is the dictating resident. Finalized reports status indicates that the attendinghas reviewed the images and report, and agrees with the interpretation. Preliminary report status should be regarded as NOT interpreted by the attending radiologist. [place] Act 112: This study does not meet the requirements of [place] Act 112. Workstation ID: [id number] Final Dictated by:MD Crawford Anthony Robert Dictated DT/TM:10/19/2023 7:04 Resident:MD Crawford Anthony Robert Signed by:MD Kaylee, Josef Vale Signed (Electronic Signature):10/19/2023 7:03 a Social History Social History Type Response Smoking Status Never smoked cigaret eber Sex Male Patient Care team information Care Team Personnel Name: MD Molina Cynthia D Position: Referring Member Role: Primary Care Provider Address: Address: [address] [place] [id number] Care Team Related Persons Name: ALLIE FRANCISCO Darek Address: [place] Address: home [address] [place] [phone]
--- OUTSIDE RECORDS SUMMARY | 2023-11-04 04:13 | External Medical Summary | Continuity of Care Document ---
Author Name Unknown Organization [facility] [address] Address [address] [place] [address] ANGELIKA SOLANO [phone] Care Team Providers Care Payroll Supervisor Name Role Phone Penelope Molina Primary Care Physician [phone] Encounter [facility] [id number] Date(s): 10/17/23 - 10/17/23 [facility] [place] [facility].[address], [address], [address] [place] [address] [phone] Encounter Diagnosis Body mass index [BMI] 24.0-24.9, adult(Discharge Diagnosis) - 10/17/23 Aortic stenosis(Discharge Diagnosis) - 10/17/23 Discharge Disposition: Home or Self Care Attending Physician: MD Chau Kentaro Allergies, Adverse Reactions, Alerts No Known Allergies Assessment and Plan Extracted from: Title:Clinical Document Author:MD Chau Kenta ro Date:10/17/23 OUTPATIENT NOTE Name: MEÑO PATRICK Patient Number:1 [id number] : 1945 Date of Service: 10/17/2023 Mr. Meño Patrick is a very pleasant 78-year-old gentleman with known severe aortic stenosis, hypertension, hyperlipidemia, mild left ventricular hypertrophy, left ventricular diastolic dysfunction, type 2 diabetes, BPH, coronary artery disease, s/p PCI to the LCX and RCA, who is experiencing progressing shortness of breath on exertion and fatigability in the last 6 weeks or so. His latest TTE on 02/18/2023 at [facility] showed mean AV gradient of 27.7 mmHg, ENMANUEL of 0.9 sq cm, dimensionless index of 0.21 with LVEF of 60-65%. He has no known allergies. His medication was reviewed in the EMR. On physical exam, his BP was 126/60 mmHg and HR was 62/min with regular heart rhythm. He was awake, alert, and oriented. He had no JVD. Her breath sounds were clear to auscultate bilaterally. He had 3/6 systolic murmur in the right sternal border. His abdomen was soft and benign. His extremities were warm without edema. I agreed that he has severe symptomatic and is an intermediate risk candidate for conventional surgical AVR due to his age and comorbidities mentioned above. I discussed with Mr. Patrick and his family in length, regarding nature of aortic valve disease, indication and purpose of treatment, treatment options including SAVR and TAVR and these procedures, risks and benefits of treatment options, expected postoperative course, etc. I recommended a TAVR based on his age and comorbidities. His TAVR protocol CT scan was obtained today and showed likely feasible anatomy for a transfemoral access. He expressed understanding in my recommendation and expressed his wish to proceed. He was agreeable with a rescue sternotomy, in case it is indicated and as long as the team believe it feasible. Feng Chau MD. bulk gas specialist Heart and Vascular [place], Cardiothoracic Surgery [facility] Medications aspirin 81 mg oral delayed release [...] 10/17/23 Non-Specified Aortic stenosis Discharge Diagnosis 10/17/23 Vital Signs Most recent to oldest [Reference Range]: 1 Height 168.3 cm (10/17/23 1:36 PM) Patient Weight 68.4 kg (10/17/23 1:36 PM) Body Mass Index 24.15 kg/m2 (10/17/23 1:36 PM) Temperature [36.5-37.9 DegC] 36.6 DegC (10/17/23 1:36 PM) Heart Rate 62 bpm (10/17/23 1:36 PM) Respiratory Rate 16 br/min (10/17/23 1:36 PM) Blood Pressure 126/60mmHg (10/17/23 1:36 PM) Cuff Pulse Pressure 66 mmHg (10/17/23 1:36 PM) BP Location # 1 Right Arm, Manual (10/17/23 1:36 PM) Social History Social History Type Response Smoking Status Never smoked cigaret eber Sex Male Cardiology * Contributor_system, [id number]: VERIFY, PERFORM Event Display: EKG Authored Date: Please click on link to see image. Outpatient Note * MD Isac, Feng: PERFORM Event Display: .Outpt Note Authored Date: [id number] OUTPATIENT NOTE Name: MEÑO PATRICK Patient Number:[id number] : 1945 Date of Service: 10/17/2023 Mr. Meño Patrick is a very pleasant 78-year-old gentleman with known severe aortic stenosis, hypertension, hyperlipidemia, mild left ventricular hypertrophy, left ventricular diastolic dysfunction, type 2 diabetes, BPH, coronary artery disease, s/p PCI to the LCX and RCA, who is experiencing progressing shortness of breath on exertion and fatigability in the last 6 weeks or so. His latest TTE on 02/18/2023 at [facility] showed mean AV gradient of 27.7 mmHg, ENMANUEL of 0.9 sq cm, dimensionless index of 0.21 with LVEF of 60-65%. He has no known allergies. His medication was reviewed in the EMR. On physical exam, his BP was 126/60 mmHg and HR was 62/min with regular heart rhythm. He was awake,alert, and oriented. He had no JVD. Her breath sounds were clear to auscultate bilaterally. He had 3/6 systolic murmur in the right sternal border. His abdomen was soft and benign. His extremities were warm without edema. I agreed that he has severe symptomatic and is an intermediate risk candidate for conventional surgical AVR due to his age and comorbidities mentioned above. I discussed with Mr. Patrick and his family in length, regarding nature of aortic valve disease, indication and purpose of treatment, treatment options including SAVR and TAVR and these procedures, risks and benefits of treatment options, e xpected postoperative course, etc. I recommended a TAVR based on his age and comorbidities. His TAVR protocol CT scan was obtained today and showed likely feasible anatomy for a transfemoral access. He expressed understanding in my recommendation and expressed his wish to proceed. He was agreeable with a rescue sternotomy, in case it is indicated and as long as the team believe it feasible. Feng Chau MD. bulk gas specialist Heart [facility] V[facility] [place], Cardiothoracic Surgery [facility] Electronic Signature on File Electronically Reviewed/Signed by: Feng Chau MD Author Signature Dt/Tm:10/17/2023 03:35 PM Division of Cardiothoracic Surgery [place] Patient Care team information Care Team Personnel Name: MD Jesse, Penelope Bardales Position: Referring Member Role: Primary Care Provider Address: Address: [address] [place] [address] [place] [address] [place] Care Team Related Persons Name: MEÑO PATRICK Address: [facility] Address: home [address] [place] [phone]
--- OUTSIDE RECORDS SUMMARY | 2023-11-04 04:14 | External Medical Summary | Continuity of Care Document ---
Author Name Unknown Organization [facility] [address] Address [address] [place] [address] [place] SOLANO [phone] Care Team Providers Care Community Chest Officer Name Role Phone Penelope Molina Primary Care Physician [phone] [id number]): 09/30/23 - 09/30/23 [facility] Heart [facility] [place], [address] [place] [address] [phone] Discharge Disposition: Home or Self Care Attending Physician: MD Simmons Moses Referring Physician: MD New Jeffrey G Social History Social History Type Response Sex Male Patient Care team information Care Team Personnel Name: MD Molina Cynthia D Position: Referring Member Role: Primary Care Provider Address: Address: [address] [place] [address] [place] [address] [place]
== END 2023-11-03 14:22 | disposition home or self-care (01) | DRG 69 ==
LOC: ED 20:03 → 2S 23:19 → SUATTDRO 23:19 → 2S 11-03 00:32